=== PATIENT | male | born 1960 | race Caucasian/White ===

== ENCOUNTER 2023-04-11 12:06 | Inpatient (IN) | payer MEDICAID, SELFPAY ==
--- NOTE | ~2023-04-11 | XR_ITS ---
EXAMINATION: XR LUMBOSACRAL SPINE CLINICAL INFORMATION: Pain. COMPARISON: None available. TECHNIQUE: Three views of the lumbosacral spine. FINDINGS: There is normal lumbar lordosis. The vertebral heights, alignment and disc heights are normal. There is no visible acute fracture, dislocation or subluxation seen. No lytic or sclerotic process seen. The soft tissues are normal. SI joints are normal. XR/XR lumbar spine 2-3V IMPRESSION: Unremarkable lumbar spine exam.
--- NOTE | ~2023-04-11 | CT_ITS ---
Examination: CT chest and CT abdomen and pelvis IV contrast. Clinical indications: 50 pound weight loss. Evaluate for malignancy or pancreatitis. COMPARISON: None. TECHNIQUE: 5 mm thin axial and reformatted 3 mm thin sagittal and coronal images of chest, abdomen and pelvis were obtained following IV 85 ml Omnipaque 350. DLP 534. This CT examination was performed using dose optimization technique as appropriate, variously including the following: Automated exposure control Adjustment of MA and/or KV according to patient size(this includes techniques or standardized protocols for targeted exams where dose is matched to indication/reason for exam; extremities or head. Use of iterative reconstruction techniques. FINDINGS: CHEST: LUNGS: The lungs are well-expanded and clear of acute pneumonic process. There is a 2 mm nodule right upper lobe axial image 24/11, a 1 mm nodule right upper lobe peripherally based axial image 22/7, 2 mm nodule right upper lobe axial image 221/14, 5 mm nodule in the lingula axial image 288/14, 5 mm nodule left lower lobe adjacent to the major fissure axial image 304/14. Mediastinum: The heart size and the great vessels are normal caliber. Thyroid lobes are symmetrical and normal. The central trachea and the bronchi widely patent. No abnormal size mediastinal or hilar lymph nodes seen. There is no pericardial effusion. There is mild coronary artery calcifications. Pleura: There is no calcified plaques or thickening or effusion. Axilla: Unremarkable. The chest wall is unremarkable. Osseous structures: No aggressive lytic or sclerotic process seen. Abdomen and pelvis: Liver, ducts and gallbladder: The liver is normal size, contour and density. No focal lesion or intrahepatic ductal dilatation. The gallbladder is distended but no radiopaque calculi seen. No wall thickening. Spleen: unremarkable. Pancreas: Unremarkable. Adrenal glands: Unremarkable. Kidneys: There is a nonobstructive bilateral radiopaque calculi. A 6 mm radiopaque calculi upper pole left kidney and a 5 mm radiopaque calculi mid to lower pole right kidney. There is no hydronephrosis. No enhancing renal mass. Lymphovascular structures: The abdominal aorta is normal caliber. No retrobulbar lymph nodes or mass seen. GI tract: There is moderate stool seen in the colon without significant distention. The small bowel loops are nondilated. No mesenteric lymph nodes seen. There is no free fluid or free air. Appendix is normal caliber. Abdominal wall: Unremarkable. Pelvis: The prostate gland is mildly enlarged. The bladder is nondistended with moderate bladder wall thickening measuring 7 mm. No acute evidence of inguinal hernia. No abnormal size pelvic lymph nodes seen. Osseous structures: There is no aggressive lytic or sclerotic process. CT/CT abdomen pelvis w IV con IMPRESSION: Multiple pulmonary nodules with largest measuring 5 mm. No abnormal mediastinal axillary lymphadenopathy seen. Diffuse bladder wall thickening but no abnormal enhancing mass or radiopaque calculi. Bilateral renal calculi but no hydronephrosis seen. There are punctate nonenhancing hypodensities in the cortex likely small cysts. Moderate constipation. Normal appendix.
--- NOTE | 2023-04-11 12:16 | ED.GENADULT ---
HPI - General Adult General Chief complaint: General Medical Stated complaint: Back & abd pain, insomnia Time Seen by Provider: 04/11/23 14:57 Source: patient and family (Son, Dawood) Mode of arrival: ambulatory Limitations: no limitations History of Present Illness HPI narrative: 62-year-old male with history of diabetes mellitus, hypertension, depression who was brought to emergency department by his son for evaluation of abdominal pain, nausea, vomiting, diarrhea and 50 lb weight over an unknown period of time. The patient currently complaining of abdominal pain. Points to his umbilical area when asked to localize the pain. The pain is a constant squeezing like pain which is 10/10. The pain does radiate to his back. He states that he has had 1-2 episodes of vomiting per day he has had 3-4 episodes of yellow diarrheal stool per day. There has no blood in the emesis or diarrhea. Patient states he is able to eat food. The patient's son states that the patient will go through a bag of sugar every 2-3 days and is noncompliant with a diabetic diet. Patient also does not take his insulin on a regular basis. The son states that his point of care glucose at home always registers high suggesting that is greater than 500. The patient smokes 1 pack of cigarettes per day times 50 years. He does not drink alcohol use drugs. Related Data Allergies Allergy/AdvReac Type Severity Reaction Status Date / Time No Known Allergies Allergy Verified 04/11/23 12:16 Review of Systems Review of Systems: Yes all other systems are reviewed and are negative PMFSH Past Medical History PMF Narrative: Social history: He lives at home with his son who was here in the emergency department with him. Patient does smoke 1 pack of cigarettes per day times 50 years. Patient does not drink alcohol use drugs. Onset Date is defined in the Problem List Problems that require an onset date and time if occurred within 24 hrs of arrival to the ED Aortic Dissection and Rupture; Neurologic impairment; Cardiopulmonary Arrest; Endotracheal Intubation; Insertion or Replacement of Mechanical Circulatory Assist Device Social History Social History Smoked in Last 30 Days: Yes Use of substances other than those prescribed or required for medical reasons: No Advance Directives: No Advance Directives Information Provided: Yes Physical Exam ED Vital Signs: Vital Signs - 24 hr 04/11/23 12:17 04/11/23 14:41 04/11/23 17:09 Temperature 98.5 F Pulse Rate 115 H 104 H Respiratory Rate 16 18 16 Blood Pressure 99/60 109/77 Pulse Oximetry 99 100 Oxygen Delivery Method Room Air Room Air 04/11/23 17:23 Temperature Pulse Rate 100 Respiratory Rate 12 Blood Pressure 90/47 L Pulse Oximetry 97 Oxygen Delivery Method Room Air BMI result Body Mass Index 18.0 Vital signs revealed an elevated heart rate of 115 Exam General: Awake, alert in no distress, very thin appearing with a BMI of 18 Head: Normocephalic, atraumatic EENT: PERRL, Lids normal, sclera normal, conjunctiva normal, nose normal , ears normal, throat without erythema or exudates Neck: Supple, no adenopathy, no trachea midline or C-spine tenderness Lung: breath sounds symmetric, no wheezing, rales or rhonchi Chest: symmetric movement, nontender Heart: regular rate and rhythm, normal S1, S2 no murmurs or rubs Abdomen: soft, moderate diffuse tenderness with normoactive bowel sounds, no guarding Back: no vertebral tenderness, no CVAT, no paraspinal muscle tenderness Extremities: no deformities, moves all extremities symmetrically Neuro: Awake, alert, oriented, normal speech, cranial nerves intact, moves all extremities symmetrically Psych: Pleasant, cooperative Course Course Course Narrative: This is a rapid medical exam: Additional HPI, ROS, PE not included below will be deferred to primary provider. Patient is a 62-year-old male with history of DM presenting to the emergency department with complaint of abdominal pain and weight loss for the past several months. States was 170lbs 5-6 mos ago, is now 111 lbs. Vomiting with any PO intake, diarrhea. Rates pain at 10/10. Tachycardic to 115 in triage. Also complains of low back pain. Family reports glucometer is often reading high. Is only eating sugary foods. Family states he is running out of insulin. Pt is from [facility]. Plan: Labs, UA Medications Administered Discontinued Medications Generic Name Dose Route Start Last Admin Trade Name Freq PRN Reason Stop Dose Admin Lactated Ringer's 1,000 mls @ 999 mls/hr 04/11/23 15:00 04/11/23 17:10 Lr IV 04/11/23 16:00 Infused .Q1H1M NOELLE Infusion Lactated Ringer's 1,000 mls @ 999 mls/hr 04/11/23 15:15 04/11/23 17:09 Lr IV 04/11/23 16:15 999 mls/hr .Q1H1M NOELLE Administration Insulin Human Regular 5 unit 04/11/23 14:59 04/11/23 15:07 Insulin Regular, Human 100 Unit/Ml 3 Ml Vial 0.1 unit/kg (5 unit) 04/11/23 15:00 5 unit IVPUSH Administration ONCE ONE Iohexol 100 ml 04/11/23 16:20 04/11/23 16:20 Iohexol 350 Mg/Ml 100 Ml Infus..Btl IV 04/11/23 16:21 85 ml ONCE ONE Administration Morphine Sulfate 4 mg 04/11/23 16:50 04/11/23 17:09 Morphine Sulfate 4 Mg/Ml Cartridge IVPUSH 04/11/23 16:51 4 mg ONCE STA Administration Protocol Ondansetron HCl 4 mg 04/11/23 16:50 04/11/23 17:09 Ondansetron Hcl 4 Mg/2 Ml Vial IVPUSH 04/11/23 16:51 4 mg ONCE ONE Administration Medical Decision Making Medical Decision Making MDM Narrative: 62-year-old male with history of diabetes mellitus, hypertension, depression who was brought to emergency department by his son for evaluation of abdominal pain, nausea, vomiting, diarrhea and 50 lb weight over an unknown period of time. Patient's has not been compliant with a diabetic diet and according to son into bag of sugar every 3 days and does not take his insulin on a regular basis. Patient did have diffuse abdominal tenderness with no back tenderness. Vital signs did reveal an elevated heart rate of 115 otherwise unremarkable. Following evaluation was ordered: CBC, CMP, magnesium, PT/INR, lactic acid, lipase, beta hydroxybutyrate, blood cultures x2, x-ray lumbar sacral spine, CT scan of the chest abdomen pelvis with IV contrast. Patient was treated with the following: Regular insulin 5 units IV, lactated Ringer's x2 L, morphine 4 mg IV, Zofran 4 mg IV 16:27 my interpretation patient's laboratory evaluation is as follows: WBC normal 6900, elevated eosinophilic 12.3 %. PT/INR normal. Sodium low 130. Chloride low 92. BUN elevated 21. Creatinine elevated 1.41. Glucose elevated 616. Lactic acid elevated 2.4. Alk-phos elevated 152. Beta hydroxybutyrate normal at 0.21. Lipase normal. Urine positive for glucose otherwise negative for ketones. Microscopic revealed no bacteria. 17:[address] scan of the chest with IV contrast did not reveal any evidence for pneumonia or significant malignancy, he does have multiple pulmonary nodules but no mediastinal with the or axillary adenopathy. CT scan of the abdomen pelvis did not reveal a cause for his abdominal pain. Patient's weight loss most likely was related to noncompliance with his insulin and uncontrolled diabetes Patient's point of care glucose did improve to 235. Given his nausea, vomiting, abdominal and noncompliance with his insulin, the patient will need to be admitted to monitor his glucose and possibly to adjust his insulin regimen. Patient will also need home services to help administer his medications. Differential Diagnosis Differential Diagnoses: The differential diagnosis associated with the presentation includes Differential diagnosis includes was not limited to hyperglycemia, starvation ketosis, noncompliance with insulin, dehydration, pancreatitis, gastritis, gastroenteritis, malignancy, electrolyte abnormalities, anemia Admission/Observation Consideration of admission/observation: Escalation of care including admission/observation considered Lab Data MDM Lab Attestation statement: I reviewed the patient's lab results. 04/11/23 12:39 04/11/23 12:39 Labs: Lab Results 04/11/23 04/11/23 04/11/23 Range/Units 12:39 15:47 17:16 WBC 6.9 (4.8-10.8) X10*3/uL RBC 5.57 (4.60-5.80) X10*6/uL Hgb 15.4 (14.0-18.0) g/dl Hct 45.3 (42.0-52.0) % MCV 81.3 (80.0-98.0) fL MCH 27.6 (27.0-33.0) pg MCHC 34.0 (31.0-36.0) g/dl RDW 12.3 (11.0-16.0) % Plt Count 270 (160-400) X10*3/uL MPV 10.5 (9.4-12.4) fL Immature Gran % (Auto) 0.3 (0.0-0.4) % Neut % (Auto) 45.3 (45-73) % Lymph % (Auto) 36.5 (20-40) % [place] % (Auto) 3.9 (2-11) % Eos % (Auto) 12.3 H (0-4) % Baso % (Auto) 1.7 (0-2) % Lymph # (Auto) 2.5 (1.2-4.9) X10*3/uL [place] # (Auto) 0.3 (0.1-1.2) X10*3/uL Eos # (Auto) 0.9 H (0.0-0.4) X10*3/uL Baso # (Auto) 0.1 (0.0-0.2) X10*3/uL Abs Immat Gran (auto) 0.02 (0.00-0.03) X10*3/uL Absolute Neuts (auto) 3.1 (2.0-8.3) x10*3/uL Absolute Nucleated RBC 0.000 (0.0-0.012) X10*3/uL Nucleated RBC % (auto) 0.0 (0.0-0.2) /100WBC PT 9.7 L (11.1-13.3) SEC INR 0.8 L (0.9-1.1) Sodium 130 L (135-145) mmol/L Potassium 4.6 (3.3-5.1) mmol/L Chloride 92 L (96-108) mmol/L Carbon Dioxide 26 (22-29) mmol/L Anion Gap 17 (12-20) BUN 21 H (9-16) mg/dL Creatinine 1.41 H (0.5-1.4) mg/dL Estim Creat Clear Calc 37.9 Estimated GFR 51 POC Glucose 231 H (60-115) mg/dL Random Glucose 616 H* (60-115) mg/dL Lactic Acid 2.4 H* (0.5-2.0) mmol/L Lactic Acid F/U @ 2Hr 2.8 H* (0.5-2.0) mmol/L Calcium 10.3 H (8.4-10.2) mg/dL Magnesium 2.1 (1.6-2.6) mg/dL Total Bilirubin 0.4 (0.0-1.0) mg/dL AST 12 (5-37) U/L ALT 19 (0-40) U/L Alkaline Phosphatase 152 H (39-117) U/L Total Protein 8.1 H (6.5-8.0) g/dL Albumin 4.6 (3.5-5.0) g/dL Lipase 18 (8-78) U/L Beta-Hydroxybutyrate 0.21 (0.02-0.27) mmol/L Urine Color Yellow Urine Appearance Clear Urine pH 6.0 (5.0-9.0) Ur Specific [place] >= 1.030 H (1.005-1.025) Urine Protein Negative (Neg-Trace) mg/dL Urine Glucose (UA) >=1000 H (Negative) mg/dL Urine Ketones Negative (Negative) mg/dL Urine Blood Negative (Negative) Urine Nitrite Negative (Negative) Ur Leukocyte Esterase Negative (Negative) Urine RBC 0-2 (0-2) /HPF Urine WBC 0-5 (0-5) /HPF Ur Squamous Epith Cells 0-2 (0-2) /HPF Urine Bacteria None Seen (None Seen) Hyaline Casts 0-2 (0-2) /LPF Radiology Impression Discussion of test interpretation with radiology: I have reviewed the radiologist's reading. Radiologist Impression: XR lumbar spine 2-3V IMPRESSION: Unremarkable lumbar spine exam. Dictated By: Oliver Baldwin MD CT chest w IV con IMPRESSION: Multiple pulmonary nodules with largest measuring 5 mm. No abnormal mediastinal axillary lymphadenopathy seen. Diffuse bladder wall thickening but no abnormal enhancing mass or radiopaque calculi. Bilateral renal calculi but no hydronephrosis seen. There are punctate nonenhancing hypodensities in the cortex likely small cysts. Moderate constipation. Normal appendix. Dictated By: Oliver Baldwin MD Critical Care Time Critical Care Time Critical Care Time: Yes Total Critical Care Time: 35 Attestation: Critical Care: The patient was critically ill with a high probability of imminent or life threatening deterioration. I spent greater than 30 minutes of discontinuous time evaluating the patient,delivering critical care at the bedside, discussing and evaluating pertinent data with consultants. Critical care time does not include time spent performing separately billable procedures or teaching. Total time spent performing critical care was 35 minutes.
[2023-04-11 12:17] VITALS: BP 99/60; PULSE 115; RESP 16; TEMP 36.9; O2SAT 99; BMI 18.0
--- NOTE | 2023-04-11 12:19 | ECG_ITS ---
Test Reason : TACHY Blood Pressure : / mmHG Vent. Rate : 112 BPM Atrial Rate : 112 BPM P-R Int : 134 ms QRS Dur : 088 ms QT Int : 340 ms P-R-T Axes : 076 -81 080 degrees QTc Int : 464 ms Sinus tachycardia Left anterior fascicular block Minimal voltage criteria for LVH, may be normal variant ( Ione product ) Abnormal ECG No previous ECGs available Referred By: Francia Lee Electronically Signed By:ARVIND ABARCA
[2023-04-11 12:46] LABS: MANUAL DIFF FLAG NO
[2023-04-11 12:48] LABS: Basophils Absolute Auto 0.1 X10*3/uL (0.0-0.2); Basophils Percent Auto 1.7 % (0-2); Eosinophils Absolute Auto 0.9 X10*3/uL (0.0-0.4); Eosinophils Percent Auto 12.3 % (0-4); Hematocrit 45.3 % (42.0-52.0); Hemoglobin 15.4 g/dl (14.0-18.0); Imm Gran Abs Auto 0.02 X10*3/uL (0.00-0.03); Imm Gran Pct Auto 0.3 % (0.0-0.4); Lymphocytes Absolute Auto 2.5 X10*3/uL (1.2-4.9); Lymphocytes Percent Auto 36.5 % (20-40); Mean Corpuscular Hemoglobin 27.6 pg (27.0-33.0); Mean Corpuscular Volume 81.3 fL (80.0-98.0); Mean Platelet Volume 10.5 fL (9.4-12.4); Monocytes Absolute Auto 0.3 X10*3/uL (0.1-1.2); Monocytes Percent Auto 3.9 % (2-11); Neutrophils Absolute Auto 3.1 x10*3/uL (2.0-8.3); Neutrophils Percent Auto 45.3 % (45-73); Platelet Count 270 X10*3/uL (160-400); Red Blood Count 5.57 X10*6/uL (4.60-5.80); Red Cell Distribution Width 12.3 % (11.0-16.0); White Blood Count 6.9 X10*3/uL (4.8-10.8)
[2023-04-11 12:49] LABS: Appearance Urine Clear; Color Urine Yellow; Glucose Urine UA >=1000 mg/dL (Negative); Leukocyte Esterase Urine Negative (Negative); Nitrite Urine Negative (Negative); Specific Gravity - Urine >= 1.030 (1.005-1.025); UMIC TRIGGER UACC YES; Urine Blood Negative (Negative); Urine Ketones Negative (Negative); Urine Protein Negative (Neg-Trace)
[2023-04-11 12:59] LABS: Bacteria Urine None Seen (None Seen); Hyaline Casts Urine 0-2 /LPF (0-2); RBC Urine 0-2 /HPF (0-2); Squamous Epithelial Cell Urine 0-2 /HPF (0-2); WBC Urine 0-5 /HPF (0-5)
[2023-04-11 13:05] LABS: INTERNATIONAL NORM RATIO 0.8 (0.9-1.1); Prothrombin Time 9.7 SEC (11.1-13.3)
[2023-04-11 13:20] LABS: Alanine Aminotransferase 19 U/L (0-40); Albumin Level 4.6 g/dL (3.5-5.0); Alkaline Phosphatase 152 U/L (39-117); Anion Gap 17 (12-20); Aspartate Amino Transferase 12 U/L (5-37); Bilirubin Total 0.4 mg/dL (0.0-1.0); Blood Urea Nitrogen 21 mg/dL (9-16); Calcium 10.3 mg/dL (8.4-10.2); Carbon Dioxide 26 mmol/L (22-29); Chloride 92 mmol/L (96-108); Creatinine Clr Calc Pharmacy 37.9; Estimated Glomerular Filt Rate 51; Glucose Random 616 mg/dL (60-115); Magnesium 2.1 mg/dL (1.6-2.6); Potassium 4.6 mmol/L (3.3-5.1); Sodium 130 mmol/L (135-145); Total Protein 8.1 g/dL (6.5-8.0)
[2023-04-11 13:21] LABS: Lactic Acid 2.4 mmol/L (0.5-2.0)
[2023-04-11 14:41] VITALS: BP 109/77; PULSE 104; RESP 18; O2SAT 100
[2023-04-11 14:46] LABS: Reflex Lactate? Lactic Acid Added
--- NOTE | 2023-04-11 15:01 | PC.NURSE ---
MD notified of patient being in room, and current lab results done when he was in the waiting room, Lactic acid elevated, however pt has not had interventions at this time, MD to order fluids, per MD IVF orders to be placed, awaiting to redraw Lactic at this time.
[2023-04-11] MEDS: Insulin Regular, Human 100 UNIT/ML 3 ML VIAL IVPUSH (15:07)
[2023-04-11] MEDS: Lactated Ringers 1,000 ML 999 ML IV ×2 (15:09→17:09)
[2023-04-11 15:22] LABS: Beta-Hydroxybutyrate 0.21 mmol/L (0.02-0.27); Lipase 18 U/L (8-78)
[2023-04-11] MEDS: iohexoL 350 MG/ML 100 ML INFUS..BTL IV (16:20)
[2023-04-11 16:33] LABS: ~Lactic Acid-LAB USE ONLY 2.8 mmol/L (0.5-2.0)
[2023-04-11 17:09] VITALS: RESP 16
[2023-04-11] MEDS: Morphine Sulfate 4 MG/ML CARTRIDGE IVPUSH (17:09)
[2023-04-11] MEDS: ondansetron HCL 4 MG/2 ML VIAL IVPUSH (17:09)
[2023-04-11 17:21] LABS: Glucose, Whole Blood 231 mg/dL (60-115)
[2023-04-11 17:23] VITALS: BP 90/47; PULSE 100; RESP 12; O2SAT 97
[2023-04-11 17:50] LABS: Reflex Lactate? 2 Y
--- NOTE | 2023-04-11 18:00 | PHA.MEDREC ---
Pharmacy Consult ? Medication Reconciliation Pharmacy has completed the medication reconciliation. [facility] [place] as [facility] Last picked up in July of 2022. Pt is not adherent to medication Mai Thomas CPhT
[2023-04-11 18:29] VITALS: BP 150/73; PULSE 99; RESP 13; TEMP 36.2; O2SAT 98
--- NOTE | 2023-04-11 18:36 | PM.IMHP ---
History of Present Illness Date of Service: 04/11/23 Chief Complaint: WEakness, abdominal pain A 62 years old male with PMH of DMII on Insulin, HTN and depression who presented to ED by his son for evaluation of weakness, nausea, abdominal pain and diarrhea. The patient states that he moved to this area from [place] and has been using 20-30 units of Lantus not on regular basis, rarely checking his blood sugar that ranges 200-300 in morning sometimes but reads HI during the day. he is not compliant with diabetic diet and eats extra sugar. he smokes pack a day as well, been doing that for 50 years. He reports abdominal pain, jodie-umbilical, 5-6, deep and radiate to his back for months but worsened last few weeks with associated 2-3 watery bowel movements daily and sometimes he vomits but have nausea more often. No chest pain, palpitations, SOB, or urinary symptoms. denies any fever or chills. He also reports weight loss of almost 50lbs over the last year with no intention. his appetite is ok and sometimes good according to him. in ED his sugar was elevated at 616 with no anion gap or acidosis. mild dehydration and elevated Cr with no previous baseline. Elevated lactate acid. CT Images negative for any acute abnormalities. Admitted for further evaluation and work up. Review of Systems Review of Systems: No fever, chills but has generalized weakness No chest pain, palpitation No shortness of breath or coughing reporting abdominal pain, nausea and vomiting with diarrhea No urinary symptoms No any rash or wounds PMFSH Medical History (Updated 04/11/23 @ 18:51 by Aimee Preciado MD) Hypertension Type 2 diabetes mellitus Social History Patient Tobacco Use Status: Current everyday Tobacco user Meds Allergies Allergy/AdvReac Type Severity Reaction Status Date / Time No Known Allergies Allergy Verified 04/11/23 12:16 Active Medications: Current Medications Acetaminophen (Acetaminophen 325 Mg Tablet) 650 mg PO Q6H PRN PRN Reason: Pain, Mild (Pain Scale 1-3) Enoxaparin Sodium (Enoxaparin Sodium 40 Mg/0.4 Ml Syringe) 40 mg SUBCUT Q24H NOELLE Sodium Chloride (Ns) 1,000 mls @ 999 mls/hr IV .Q1H1M NOELLE Stop: 04/11/23 19:30 Insulin Glargine (Insulin Glargine,Hum.Rec.Anlog 100 Unit/Ml 10 Ml Vial) 10 unit SUBCUT BEDTIME [facility] Insulin Human Lispro (Insulin Lispro 100 Unit/Ml 3 Ml Vial) 0 unit SUBCUT QIDACHS [facility]; Protocol Mirtazapine (Mirtazapine 15 Mg Tablet) 15 mg PO BEDTIME PRN PRN Reason: Insomnia Ondansetron HCl (Ondansetron Hcl 4 Mg/2 Ml Vial) 4 mg IVPUSH Q8H PRN PRN Reason: Nausea and Vomiting Sodium Chloride (0.9 % Sodium Chloride Flush 3 Ml Syringe) 3 ml IVFLUSH QSHIFT [facility] Vitamin D (Cholecalciferol (Vitamin D3) 25 Mcg Tablet) 125 mcg PO DAILY [facility] Home Medications Medication Instructions Recorded Confirmed Last Taken Type cholecalciferol (vitamin D3) 125 125 mcg PO DAILY 04/11/23 04/11/23 Unknown History mcg (5,000 unit) tablet (Vitamin D3) insulin glargine 100 unit/mL (3 10 unit subcut QPM 04/11/23 04/11/23 Unknown History mL) subcutaneous pen (Lantus Solostar U-100 Insulin) mirtazapine 15 mg tablet 15 mg PO BEDTIME 04/11/23 04/11/23 Unknown History Physical Exam Vital Signs and Narrative: Vital Signs: Last Vital Signs Temp 97.1 F 04/11/23 18:29 Pulse 99 04/11/23 18:29 Resp 13 04/11/23 18:29 BP 150/73 H 04/11/23 18:29 Pulse Ox 98 04/11/23 18:29 O2 Del Method Room Air 04/11/23 18:29 BMI result Body Mass Index 18.0 Const: Other: Constitutional : frail, lethargic , contracted, not in distress Neck : Normal inspection, Supple Cardiovascular : RRR, no JVP, no lower extremity edema Respiratory : good bilateral air entry, no crackles, wheezes or rhonchi Gastrointestinal: soft, lax, Normal bowel sounds, Non tender Skin : Warm, Dry Neurological : Alert & oriented to self and place, No focal deficit Results Labs 04/11/23 12:39 04/11/23 12:39 Labs: Laboratory Results - last 24 hr 04/11/23 04/11/23 04/11/23 12:39 15:47 17:16 MCV 81.3 MCH 27.6 MCHC 34.0 RDW 12.3 Plt Count 270 MPV 10.5 Immature Gran % (Auto) 0.3 Neut % (Auto) 45.3 Lymph % (Auto) 36.5 [place] % (Auto) 3.9 Eos % (Auto) 12.3 H Baso % (Auto) 1.7 Lymph # (Auto) 2.5 [place] # (Auto) 0.3 Eos # (Auto) 0.9 H Baso # (Auto) 0.1 Abs Immat Gran (auto) 0.02 Absolute Neuts (auto) 3.1 Absolute Nucleated RBC 0.000 Nucleated RBC % (auto) 0.0 PT 9.7 L INR 0.8 L Anion Gap 17 Estim Creat Clear Calc 37.9 Estimated GFR 51 POC Glucose 231 H Random Glucose 616 H* Lactic Acid 2.4 H* Lactic Acid F/U @ 2Hr 2.8 H* Calcium 10.3 H Magnesium 2.1 Total Bilirubin 0.4 AST 12 ALT 19 Alkaline Phosphatase 152 H Total Protein 8.1 H Albumin 4.6 Lipase 18 Beta-Hydroxybutyrate 0.21 Urine Color Yellow Urine Appearance Clear Urine pH 6.0 Ur Specific [place] >= 1.030 H Urine Protein Negative Urine Glucose (UA) >=1000 H Urine Ketones Negative Urine Blood Negative Urine Nitrite Negative Ur Leukocyte Esterase Negative Urine RBC 0-2 Urine WBC 0-5 Ur Squamous Epith Cells 0-2 Urine Bacteria None Seen Hyaline Casts 0-2 Imaging Radiologist's Impressions: Impressions Lumbar Spine X-Ray 04/11/23 12:56 IMPRESSION: Unremarkable lumbar spine exam. Abdomen/Pelvis CT 04/11/23 16:27 IMPRESSION: Multiple pulmonary nodules with largest measuring 5 mm. No abnormal mediastinal axillary lymphadenopathy seen. Diffuse bladder wall thickening but no abnormal enhancing mass or radiopaque calculi. Bilateral renal calculi but no hydronephrosis seen. There are punctate nonenhancing hypodensities in the cortex likely small cysts. Moderate constipation. Normal appendix. Chest CT 04/11/23 16:27 IMPRESSION: Multiple pulmonary nodules with largest measuring 5 mm. No abnormal mediastinal axillary lymphadenopathy seen. Diffuse bladder wall thickening but no abnormal enhancing mass or radiopaque calculi. Bilateral renal calculi but no hydronephrosis seen. There are punctate nonenhancing hypodensities in the cortex likely small cysts. Moderate constipation. Normal appendix. Assessment and Plan (1) Failure to thrive in adult: Status: Acute (2) Abnormal weight loss: Status: Acute (3) Abdominal pain: Status: Acute (4) Acute kidney injury: Status: Acute (5) Acute hyperglycemia: Status: Acute Plan A 62 years old male with PMH of DMII on Insulin, HTN and depression who presented to ED by his son for evaluation of weakness, nausea, abdominal pain and diarrhea. 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 Quality Stroke Does the patient have a stroke diagnosis?: No VTE Prior VTE?: No VTE Risk Level:: Medical - moderate - high VTE Device Contraindication: Treatment Not Indicated VTE Drug Contraindication: N/A - Med Ordered
[2023-04-11 19:15] LABS: ~Lactic Acid-LAB USE ONLY 1.1 mmol/L (0.5-2.0)
[2023-04-11 19:22] LABS: Thyroid Stimulating Hormone 1.85 uIU/mL (0.32-4.0); Vitamin D 25-OH Total 31.7 ng/mL (>30)
--- NOTE | 2023-04-11 19:45 | PC.NURSE ---
poc 491. Dr. Khalil notified. pt denies cp/sob/n/v/d at this time. vss. resting comfortably in bed. ivf infusing. call duran within reach.
--- NOTE | 2023-04-11 19:48 | MHC.EDTECH ---
Patient received dinner tray
[2023-04-11 19:55] LABS: Glucose, Whole Blood 491 mg/dL (60-115)
[2023-04-11] MEDS: Insulin Regular, Human 100 UNIT/ML 3 ML VIAL 10 UNIT IVPUSH (20:10)
[2023-04-11] MEDS: Enoxaparin Sodium 40 MG/0.4 ML SYRINGE SUBCUT (20:11)
[2023-04-11] MEDS: Insulin Glargine,Hum.rec.anlog 100 UNIT/ML 10 ML VIAL 10 UNIT SUBCUT (20:11)
[2023-04-11] MEDS: Insulin Lispro 100 UNIT/ML 3 ML VIAL SUBCUT (20:11)
[2023-04-11] MEDS: 0.9 % Sodium Chloride 1,000 ML 999 ML IV ×2 (20:12→23:45)
[2023-04-11 21:55] LABS: Glucose, Whole Blood 262 mg/dL (60-115)
[2023-04-11 23:31] VITALS: BP 89/45; PULSE 92; RESP 15
[2023-04-11] MEDS: Dextrose 50 % 25 GM/50 ML SYRINGE IVPUSH (23:45)
--- NOTE | 2023-04-11 23:51 | PC.NURSE ---
2330 bp low 89/45 pt repositioned to trendelenberg and supine position. ivf infusing. Dr. Khalil notified. pt appears lethargic/clammy. poc rechecked 32. Dr. Khalil notified. pt able to drink 2 cups of juice. iv dextrose given per dr. khalil verbal order. iv bolus infusing.
[2023-04-11 23:55] LABS: Glucose, Whole Blood 32 mg/dL (60-115)
[2023-04-12] VITALS (10 sets, daily range): BP systolic 100–154; BP diastolic 53–90; PULSE 96–105; RESP 16–18; TEMP 35.5–36.6; O2SAT 97–100; BMI 20.3
[2023-04-12 00:09] LABS: Glucose, Whole Blood 163 mg/dL (60-115)
--- NOTE | 2023-04-12 03:33 | PC.NURSE ---
pt accidentally ripped out IV L. AC while repositioning in bed. new iv placed r wrist.
[2023-04-12 06:34] LABS: Anion Gap 9 (12-20); Blood Urea Nitrogen 20 mg/dL (9-16); Calcium 8.7 mg/dL (8.4-10.2); Carbon Dioxide 26 mmol/L (22-29); Chloride 102 mmol/L (96-108); Creatinine Clr Calc Pharmacy 57.5; Estimated Glomerular Filt Rate > 60; Glucose Random 318 mg/dL (60-115); Potassium 4.4 mmol/L (3.3-5.1); Sodium 133 mmol/L (135-145)
[2023-04-12 07:15] LABS: Hemoglobin A1c % > 14.0 % (<6.0)
[2023-04-12 07:25] LABS: Glucose, Whole Blood 304 mg/dL (60-115)
[2023-04-12] MEDS: Insulin Lispro 100 UNIT/ML 3 ML VIAL SUBCUT ×3 (07:31→20:19)
--- NOTE | 2023-04-12 07:57 | PC.NURSE ---
assumed care of pt at 0700. pt a&o x4, pleasant, calm, and cooperative. pt medicated per may and ate breakfast. requesting multiple diabetic sugars. pt resting quietly on stretcher, rr even/unlabored. call duran within reach. awaiting bed assignment. plan of care ongoing.
[2023-04-12] MEDS: metFORMIN HCl 500 MG TABLET PO ×2 (09:03→17:23)
--- NOTE | 2023-04-12 09:13 | HO.PM.IMPN ---
Subjective Subjective Date of Service: 04/12/23 Interval History: Seen and evaluated this morning pain has improved, no nausea Asking for extra food Could not sleep, having pain all over his body Review of Systems Review of Systems: Yes all other systems are reviewed and are negative Physical Exam Vital Signs: Vital Signs: Last Vital Signs Temp 95.9 F L 04/12/23 03:34 Pulse 97 04/12/23 06:04 Resp 18 04/12/23 06:04 BP 122/77 04/12/23 06:04 Pulse Ox 98 04/12/23 06:04 O2 Del Method Room Air 04/12/23 06:04 BMI result Body Mass Index 18.0 Const: Other: Constitutional : frail, lethargic , contracted, not in distress Neck : Normal inspection, Supple Cardiovascular : RRR, no JVP, no lower extremity edema Respiratory : good bilateral air entry, no crackles, wheezes or rhonchi Gastrointestinal: soft, lax, Normal bowel sounds, Non tender Skin : Warm, Dry Neurological : Alert & oriented to self and place, No focal deficit Objective Data Active Medications Acetaminophen (Acetaminophen 325 Mg Tablet) 650 mg PO Q6H PRN PRN Reason: Pain, Mild (Pain Scale 1-3) Dextrose (Dextrose 50 % 25 Gm/50 Ml Syringe) 25 gm IVPUSH Q15M PRN PRN Reason: per Hypoglycemia Standing Ord. Last Admin: 04/11/23 23:45 Dose: 25 gm Documented By: YOLANDA Enoxaparin Sodium (Enoxaparin Sodium 40 Mg/0.4 Ml Syringe) 40 mg SUBCUT Q24H [facility] Last Admin: 04/11/23 20:11 Dose: 40 mg Documented By: YOLANDA Insulin Glargine (Insulin Glargine,Hum.Rec.Anlog 100 Unit/Ml 10 Ml Vial) 15 unit SUBCUT DAILY [facility] Insulin Human Lispro (Insulin Lispro 100 Unit/Ml 3 Ml Vial) 0 unit SUBCUT QIDACHS [facility]; Protocol Last Admin: 04/12/23 07:31 Dose: 8 unit Documented By: WALTER Metformin HCl (Metformin Hcl 500 Mg Tablet) 500 mg PO BIDWM [facility] Last Admin: 04/12/23 09:03 Dose: 500 mg Documented By: WALTER Mirtazapine (Mirtazapine 15 Mg Tablet) 15 mg PO BEDTIME PRN PRN Reason: Insomnia Ondansetron HCl (Ondansetron Hcl 4 Mg/2 Ml Vial) 4 mg IVPUSH Q8H PRN PRN Reason: Nausea and Vomiting Sodium Chloride (0.9 % Sodium Chloride Flush 3 Ml Syringe) 3 ml IVFLUSH QSHIFT [facility] Last Admin: 04/12/23 07:24 Dose: Not Given Documented By: WALTER Non-Admin Reason: Med Not Available Vitamin D (Cholecalciferol (Vitamin D3) 25 Mcg Tablet) 125 mcg PO DAILY [facility] Labs 04/11/23 12:39 04/12/23 06:03 Labs: Laboratory Results - last 24 hr 04/11/23 04/11/23 04/11/23 12:39 15:47 17:16 MCV 81.3 MCH 27.6 MCHC 34.0 RDW 12.3 Plt Count 270 MPV 10.5 Immature Gran % (Auto) 0.3 Neut % (Auto) 45.3 Lymph % (Auto) 36.5 [place] % (Auto) 3.9 Eos % (Auto) 12.3 H Baso % (Auto) 1.7 Lymph # (Auto) 2.5 [place] # (Auto) 0.3 Eos # (Auto) 0.9 H Baso # (Auto) 0.1 Abs Immat Gran (auto) 0.02 Absolute Neuts (auto) 3.1 Absolute Nucleated RBC 0.000 Nucleated RBC % (auto) 0.0 PT 9.7 L INR 0.8 L Anion Gap 17 Estim Creat Clear Calc 37.9 Estimated GFR 51 POC Glucose 231 H Random Glucose 616 H* Estimat Average Glucose TNP Hemoglobin A1c % > 14.0 H Lactic Acid 2.4 H* Lactic Acid F/U @ 2Hr 2.8 H* Lactic Acid F/U @ 4Hr Calcium 10.3 H Magnesium 2.1 Total Bilirubin 0.4 AST 12 ALT 19 Alkaline Phosphatase 152 H Total Protein 8.1 H Albumin 4.6 Lipase 18 25-OH Vitamin D Total 31.7 Beta-Hydroxybutyrate 0.21 TSH 1.85 Urine Color Yellow Urine Appearance Clear Urine pH 6.0 Ur Specific [place] >= 1.030 H Urine Protein Negative Urine Glucose (UA) >=1000 H Urine Ketones Negative Urine Blood Negative Urine Nitrite Negative Ur Leukocyte Esterase Negative Urine RBC 0-2 Urine WBC 0-5 Ur Squamous Epith Cells 0-2 Urine Bacteria None Seen Hyaline Casts 0-2 04/11/23 04/11/23 04/11/23 18:58 19:35 21:11 MCV MCH MCHC RDW Plt Count MPV Immature Gran % (Auto) Neut % (Auto) Lymph % (Auto) [place] % (Auto) Eos % (Auto) Baso % (Auto) Lymph # (Auto) [place] # (Auto) Eos # (Auto) Baso # (Auto) Abs Immat Gran (auto) Absolute Neuts (auto) Absolute Nucleated RBC Nucleated RBC % (auto) PT INR Anion Gap Estim Creat Clear Calc Estimated GFR POC Glucose 491 H* 262 H Random Glucose Estimat Average Glucose Hemoglobin A1c % Lactic Acid Lactic Acid F/U @ 2Hr Lactic Acid F/U @ 4Hr 1.1 Calcium Magnesium Total Bilirubin AST ALT Alkaline Phosphatase Total Protein Albumin Lipase 25-OH Vitamin D Total Beta-Hydroxybutyrate TSH Urine Color Urine Appearance Urine pH Ur Specific [place] Urine Protein Urine Glucose (UA) Urine Ketones Urine Blood Urine Nitrite Ur Leukocyte Esterase Urine RBC Urine WBC Ur Squamous Epith Cells Urine Bacteria Hyaline Casts 04/11/23 04/11/23 04/12/23 23:41 23:59 06:03 MCV MCH MCHC RDW Plt Count MPV Immature Gran % (Auto) Neut % (Auto) Lymph % (Auto) [place] % (Auto) Eos % (Auto) Baso % (Auto) Lymph # (Auto) [place] # (Auto) Eos # (Auto) Baso # (Auto) Abs Immat Gran (auto) Absolute Neuts (auto) Absolute Nucleated RBC Nucleated RBC % (auto) PT INR Anion Gap 9 L Estim Creat Clear Calc 57.5 Estimated GFR > 60 POC Glucose 32 L* 163 H Random Glucose 318 H Estimat Average Glucose Hemoglobin A1c % Lactic Acid Lactic Acid F/U @ 2Hr Lactic Acid F/U @ 4Hr Calcium 8.7 D Magnesium Total Bilirubin AST ALT Alkaline Phosphatase Total Protein Albumin Lipase 25-OH Vitamin D Total Beta-Hydroxybutyrate TSH Urine Color Urine Appearance Urine pH Ur Specific [place] Urine Protein Urine Glucose (UA) Urine Ketones Urine Blood Urine Nitrite Ur Leukocyte Esterase Urine RBC Urine WBC Ur Squamous Epith Cells Urine Bacteria Hyaline Casts 04/12/23 07:21 MCV MCH MCHC RDW Plt Count MPV Immature Gran % (Auto) Neut % (Auto) Lymph % (Auto) [place] % (Auto) Eos % (Auto) Baso % (Auto) Lymph # (Auto) [place] # (Auto) Eos # (Auto) Baso # (Auto) Abs Immat Gran (auto) Absolute Neuts (auto) Absolute Nucleated RBC Nucleated RBC % (auto) PT INR Anion Gap Estim Creat Clear Calc Estimated GFR POC Glucose 304 H Random Glucose Estimat Average Glucose Hemoglobin A1c % Lactic Acid Lactic Acid F/U @ 2Hr Lactic Acid F/U @ 4Hr Calcium Magnesium Total Bilirubin AST ALT Alkaline Phosphatase Total Protein Albumin Lipase 25-OH Vitamin D Total Beta-Hydroxybutyrate TSH Urine Color Urine Appearance Urine pH Ur Specific [place] Urine Protein Urine Glucose (UA) Urine Ketones Urine Blood Urine Nitrite Ur Leukocyte Esterase Urine RBC Urine WBC Ur Squamous Epith Cells Urine Bacteria Hyaline Casts Assessment and Plan (1) Failure to thrive in adult: Status: Acute (2) Acute hyperglycemia: Status: Acute (3) Medically noncompliant: Status: Acute (4) Abnormal weight loss: Status: Acute (5) Acute kidney injury: Status: Acute Plan A 62 years old male with PMH of DMII on Insulin, HTN and depression who presented to ED by his son for evaluation of weakness, nausea, abdominal pain and diarrhea. Acute hyperglycemia in uncontrolled type 2 DM with incident of Hypoglycemia Sugar went down to 39 last night and responded quickly, from Lantus but since then has been hyperglycemic HbA1c >14 Change Lantus to daily 15 units Start Metformin SSI diabetic diet Lactic acidosis On Admission, secondary to dehydration not sepsis resolved Acute kidney injury Cr improved to 0.9 with IVF baseline unknown monitor BMP Failure to thrive in adult w weight loss and chronic pain CT scan negative for any acute findings check stool panel, WBCs GI consult bulk pallet builder eval PT HTN monitor BP and consider NAHUM\ARBs DVT PPx Lovenox The patient will likely need overnight hospital stay for treatment of hyperglycemia in uncontrolled diabetes, evaluation of abdominal pain and weight loss pending specialist consult and safe discharge plan. Quality Stroke Does the patient have a stroke diagnosis?: No VTE Prior VTE?: No VTE Risk Level:: Medical - moderate - high VTE Device Contraindication: Treatment Not Indicated VTE Drug Contraindication: N/A - Med Ordered
--- NOTE | 2023-04-12 09:14 | PC.NURSE ---
pt had BM on commode. pee all over floor. unknown as to why? urinal within pt reach. report given to PB Menezes in overflow. awaiting pt transport.
--- NOTE | 2023-04-12 09:50 | P.CNGI_ITS ---
History of Present Illness Data of Consult Service Date: 04/12/23 Requesting physician: Aimee Preciado Primary Care Provider: None Physician HPI Reason for consult: Abd pain, weight loss and diarrhea 62 YM with Type 2 DM on Insulin, HTN and depression seen [place] [facility] on 04/11[place]23 with weakness, nausea, abdominal pain and diarrhea. Pt gives a hx of chronic back pain for the past 6 months and jodie- umbilical/abdominal pain for the past month. He describes the abdominal pain as intermittent, burning in character and 8/10 in intensity. Pt also complains of diarrhea with 4-5 soft/pudding like stools every day without blood or mucous. Pt reports nausea with occasional vomiting and denies heartburn or dysphagia. He denies chest pain, palpitations, SOB, or urinary symptoms, fever or chills. Pt reports unintentional weight loss of almost 50 lbs over the last year. He states his appetite is ok and he eats 2-3 times a day (usually cooks his own meals). Patient denies known history of cardiac or pulmonary problems, snoring or sleep apnea. Pt denies ETOH abuse and admits to smoking a pack a day for 50 years. The patient states he was diagnosed with DM in 2013. He moved to [facility] from [place] a month ago and has been using 20-30 units of Lantus not on regular basis (since he ran out of his medications), rarely checking his blood sugar that ranges 200-300 in morning sometimes but reads HI during the day. Per pt's son - he is not compliant with diabetic diet and eats extra sugar. Patient is from his , has 8 children and lives with his son. 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 in ED his sugar was elevated at 616 with no anion gap or acidosis. mild dehydration and elevated Cr with no previous baseline. Elevated lactate acid. Pt was admitted for further evaluation and work up. Pt states his abdominal pain and diarrhea have resolved. Nursing staff reports pt has not had a BM since arrival from the ED and has been eating 75% of his diet. 04/11/[address] SCAN SHOWED: IMPRESSION: Multiple pulmonary nodules with largest measuring 5 mm. No abnormal mediastinal axillary lymphadenopathy seen. Diffuse bladder wall thickening but no abnormal enhancing mass or radiopaque calculi. Bilateral renal calculi but no hydronephrosis seen. There are punctate nonenhancing hypodensities in the cortex likely small cysts. Moderate constipation. Normal appendix. Review of Systems 2 Review of Systems: No fever, chills but has generalized weakness No chest pain, palpitation No shortness of breath or coughing reporting abdominal pain, nausea and vomiting with diarrhea No urinary symptoms No any rash or wounds PMFSH Past Medical History Medical History (Updated 05/06/23 @ 00:00 by Erik Matamoros) Hypertension Type 2 diabetes mellitus Social History Social History Household Members: Family Housing: Apartment Do you presently have visiting nurse or other home services: No Patient Tobacco Use Status: Current everyday Tobacco user Cigarettes Per Day: 15 Smoked in Last 30 Days: Yes Use of substances other than those prescribed or required for medical reasons: No Advance Directives: Yes Advance Directives on File: Yes Advance Directives Date on File: 04/17/23 service: No Meds Allergies Allergy/AdvReac Type Severity Reaction Status Date / Time No Known Allergies Allergy Verified 04/11/23 12:16 Active Medications: Current Medications Acetaminophen (Acetaminophen 325 Mg Tablet) 650 mg PO Q6H PRN PRN Reason: Pain, Mild (Pain Scale 1-3) Dextrose (Dextrose 50 % 25 Gm/50 Ml Syringe) 25 gm IVPUSH Q15M PRN PRN Reason: per Hypoglycemia Standing Ord. Last Admin: 04/11/23 23:45 Dose: 25 gm Enoxaparin Sodium (Enoxaparin Sodium 40 Mg/0.4 Ml Syringe) 40 mg SUBCUT Q24H [facility] Last Admin: 04/11/23 20:11 Dose: 40 mg Gabapentin (Gabapentin 100 Mg Capsule) 200 mg PO BEDTIME [facility] Insulin Glargine (Insulin Glargine,Hum.Rec.Anlog 100 Unit/Ml 10 Ml Vial) 15 unit SUBCUT DAILY [facility] Insulin Human Lispro (Insulin Lispro 100 Unit/Ml 3 Ml Vial) 0 unit SUBCUT QIDACHS [facility]; Protocol Last Admin: 04/12/23 07:31 Dose: 8 unit Metformin HCl (Metformin Hcl 500 Mg Tablet) 500 mg PO BIDWM [facility] Last Admin: 04/12/23 09:03 Dose: 500 mg Mirtazapine (Mirtazapine 15 Mg Tablet) 15 mg PO BEDTIME PRN PRN Reason: Insomnia Ondansetron HCl (Ondansetron Hcl 4 Mg/2 Ml Vial) 4 mg IVPUSH Q8H PRN PRN Reason: Nausea and Vomiting Sodium Chloride (0.9 % Sodium Chloride Flush 3 Ml Syringe) 3 ml IVFLUSH QSHIFT [facility] Last Admin: 04/12/23 07:24 Dose: Not Given Vitamin D (Cholecalciferol (Vitamin D3) 25 Mcg Tablet) 125 mcg PO DAILY [facility] Home Medications Medication Instructions Recorded Confirmed Last Taken Type cholecalciferol (vitamin D3) 125 125 mcg PO DAILY 04/11/23 04/11/23 Unknown History mcg (5,000 unit) tablet (Vitamin D3) mirtazapine 15 mg tablet 15 mg PO BEDTIME 04/11/23 04/11/23 Unknown History Physical Exam 2 Vital Signs: Vital Signs: Last Vital Signs Temp 95.9 F L 04/12/23 03:34 Pulse 97 04/12/23 06:04 Resp 18 04/12/23 06:04 BP 122/77 04/12/23 06:04 Pulse Ox 98 04/12/23 06:04 O2 Del Method Room Air 04/12/23 06:04 BMI result Body Mass Index 18.0 Const: General: no acute distress and other (frail appearing) Nutritional Appearance: average body habitus Orientation/consciousness: patient oriented x3 Limitations: no limitations HEENT: Head: Yes normal to inspection Ears: hearing grossly normal bilaterally Eyes: Sclerae: sclerae normal Pupils: Equal, round and reactive pupils present Neck: Neck: Yes normal visual inspection Chest: Chest palpation & inspection: normal inspection of the chest Resp: Effort & Inspection: normal respiratory effort Auscultation: clear to auscultation bilaterally Cardio: Palpation: normal PMI Rate: regular rate Rhythm: regular rhythm Heart sounds: S1 normal heart sound present, S2 normal heart sound present and no murmurs GI: Palpation (GI): Soft to palpation, nontender and No hepatosplenomegaly present Auscultation: normal bowel sounds Rectal Exam - Male: Yes deferred Skin: General skin exam: no rashes or lesions noted Neuro: General: patient oriented x3, gait normal and moves all extremities Cranial nerves: Yes Equal, round and reactive pupils present Psych: Appearance: grossly normal Mental Status: mental status grossly normal Results Labs 04/11/23 12:39 04/13/23 05:57 Labs: Short CBC 04/11/23 Range/Units 12:39 WBC 6.9 (4.8-10.8) X10*3/uL Hgb 15.4 (14.0-18.0) g/dl Hct 45.3 (42.0-52.0) % Plt Count 270 (160-400) X10*3/uL BMP 04/11/23 04/12/23 12:39 06:03 Sodium 130 L 133 L Potassium 4.6 4.4 Chloride 92 L 102 Carbon Dioxide 26 26 BUN 21 H 20 H Creatinine 1.41 H 0.93 Calcium 10.3 H 8.7 D Liver Function 04/11/23 Range/Units 12:39 Total Bilirubin 0.4 (0.0-1.0) mg/dL AST 12 (5-37) U/L ALT 19 (0-40) U/L Alkaline Phosphatase 152 H (39-117) U/L Albumin 4.6 (3.5-5.0) g/dL Urine 04/11/23 Range/Units 12:39 Urine Color Yellow Urine Appearance Clear Urine pH 6.0 (5.0-9.0) Ur Specific [place] >= 1.030 H (1.005-1.025) Urine Protein Negative (Neg-Trace) mg/dL Urine Glucose (UA) >=1000 H (Negative) mg/dL Assessment and Plan (1) Abnormal weight loss: Status: Acute (2) Abdominal pain: Status: Resolved (3) Chronic diarrhea: Status: Resolved (4) Diabetes: Status: Acute Plan 62 YM with Type 2 DM on Insulin, HTN and depression seen [place] [facility] [place] 04[place]23 with weakness, nausea, abdominal pain and diarrhea. Per pt's son - he is not compliant with diabetic diet and eats extra sugar. in ED his sugar was elevated at 616 with no anion gap or acidosis. mild dehydration and elevated Cr with no previous baseline. Elevated lactate acid. Pt states his abdominal pain and diarrhea have resolved. Nursing staff reports pt has not had a BM since arrival from the ED and has been eating 75% of his diet. Etiology of abdominal pain, wt loss and diarrhea is unclear - ? PUD, infectious colitis, pancreatic insufficiency or parasitic infection (elevated eosinophil count on admission) Wt loss partially caused by uncontrolled DM RECOMMENDATIONS 1. Check stool for fat, pancreatic elastase and O & P - order placed. 2. Check Transglutaminase ab to rule out celiac disease (added to am labs) 3. Pt needs further evaluation with EGD and Colonoscopy (he denies having a colonoscopy in the past) - can be scheduled as an outpatient since symptoms have improved. 4. Agree with Nutrition consult for education on ADA and improved control of DM. ADDENDUM: Hospital course: Patient presented with abdominal pain and weakness, CT noted for no acute finding but had constipation, lab work revealed JULY, hyperglycemia and hemoglobin A1C of 14 has has not been compliant with meds, and claims that his glucometer has been broken and reads error all the time. Patient was hydrated and restarted on Med with Lantus now up to 15 unts daily, sliding scale with humalog and metformin 500 mg twice a day. JULY has resolved, Blood sugar is better controled. He is familar with insulin pen and will be discharege with Insulin pen for Lantus and Humalog Procedures Date of Service Date of Service: 05/08/23
--- NOTE | 2023-04-12 09:56 | PC.NURSE ---
pt being brought to overflow.
[2023-04-12] MEDS: Cholecalciferol (Vitamin D3) 25 MCG TABLET 125 MCG PO (10:02)
[2023-04-12] MEDS: Insulin Glargine,Hum.rec.anlog 100 UNIT/ML 10 ML VIAL 15 UNIT SUBCUT (10:02)
[2023-04-12] MEDS: Acetaminophen 325 MG TABLET 650 MG PO (10:06)
[2023-04-12] MEDS: 0.9 % Sodium Chloride Flush 3 ML SYRINGE IVFLUSH ×3 (10:06→20:16)
--- NOTE | 2023-04-12 10:19 | P.CDIM_ITS ---
PROVIDER RESPONSE TEXT: To clarify, the appropriate diagnosis supported by the clinical indicators: Other (explain): pseuodo-hyponatremia QUERY TEXT: PHYSICIAN'S DOCUMENTATION REQUEST Date of Query: 04/12/2023 09:21 AM EST Patient Name: ROLA FUENTES Admit Date: 04/11/2023 Dear Aimee Preciado, A review of the medical record indicates additional documentation may be needed. Please review below and update the documentation accordingly. Clinical Indicators: LAB FINDINGS: sodium 130L 133 Patient N/V/D/Dehydrated Based on the above, is there a diagnosis that correlates with these lab findings: Hyponatremia resolved, possible, suspected etc. Labs indicate a diagnosis of (please specify) Other (explain) Clinically unable to determine (explain) Thank you, Bety Carrion, CCS, CDIS Use of terms such as suspected, likely, concern for, or probable (associated with a specific diagnosi s that is being evaluated, monitored, or treated as if it exists) are acceptable and can be coded in the inpatient se tting, when documented at the time of discharge. Please use your independent medical judgment in providing your response. THIS QUERY IS PART OF THE PERMANENT MEDICAL RECORD
--- NOTE | 2023-04-12 10:22 | P.CDIM_ITS ---
PROVIDER RESPONSE TEXT: To clarify, the appropriate diagnosis supported by the clinical indicators: Acute lactic acidosis: resolved QUERY TEXT: PHYSICIAN'S DOCUMENTATION REQUEST Date of Query: 04/12/2023 09:23 AM EST Patient Name: ROLA FUENTES Admit Date: 04/11/2023 Dear Aimee Preciaod, A review of the medical record indicates additional documentation may be needed. Please review below and update the documentation accordingly. Clinical Indicators: H&P: elevated lactic acid LA 2.4 Acute lactic acidosis suspected, resolved, possible, etc. Acute on chronic Other (explain) Clinically unable to determine (explain) Thank you, Bety Carrion, CCS, CDIS Use of terms such as suspected, likely, concern for, or probable (associated with a specific diagnosi s that is being evaluated, monitored, or treated as if it exists) are acceptable and can be coded in the inpatient se tting, when documented at the time of discharge. Please use your independent medical judgment in providing your response. THIS QUERY IS PART OF THE PERMANENT MEDICAL RECORD
[2023-04-12 10:51] LABS: Leukocytes Stool Qualitative NEGATIVE (NEGATIVE)
--- NOTE | 2023-04-12 10:54 | MHC.CM.PN ---
CM MET WITH PT WHO STATES HE IS STAYING WITH HIS SON BUT CANNOT RETURN HE ALSO SAYS HE DOES NOT HAVE INSURANCE UNTIL APRIL 27, 2023 PT DENIES HAVING DME BUT STATES HE NEEDS SOME HE RECENTLY MOVED HERE FROM [place], AND DOES NOT YET HAVE A PCP PT DOES NOT HAVE A HCP BUT HIS SON WITH SPEAK TO HIM ABOUT COMPLETING ONE CM CALLED PTS SON, ROLA [phone] HE REPORTS PT MOVED IN WITH HIM ABOUT 5 WEEKS AGO HE SAYS HIS LANDLORD DID SAY THE PT COULD ONLY STAY A MONTH, BUT ROLA REPORTS HE IS NOT CONCERNED ABOUT PT RETURNING HE SAYS THE PT HAS ACTIVE [employer], BUT HIS MEDICARE WILL BE ACTIVE ON APR 27 PT DOES NOT HAVE A PCP, ROLA SAYS [facility] TOLD HIM THEY MAY BE ABLE TO GET HIM IN SOMETIME IN [place] HE IS WILLING TO GO [place]WHERE [place] IF AN APPT CAN BE MADE FOR THE PT ROLA REPORTS HE HOPES THAT PT GOES TO STR HE WILL JUST DO THE SAME THING IF HE GOES RIGHT HOME, HE SAYS THE PT OFTEN DOES NOT TAKE CARE OF HIMSELF PROPERLY REFERRALS WILL BE MADE FOR STR AND [facility] DCP TBD HOME WITH [facility] REFERRAL VS STR TRANSPORT TBD
--- NOTE | 2023-04-12 11:25 | MHC.CM.PN ---
Pt lives with son, he came here about 1 month ago from [place], he said he needs help to find a place to live, family resource guide was given. He does not have a PCP, task submitted to obtain him a new PCP appt. Pt did not use any home health services or med equipment. CM to follow and assist with DC planning.
[2023-04-12 11:26] LABS: Glucose, Whole Blood 155 mg/dL (60-115)
[2023-04-12 11:48] LABS: Adenovirus F 40/41 Not Detected (Not Detect.); Astrovirus Not Detected (Not Detect.); Campylobacter Not Detected (Not Detect.); Cryptosporidium Not Detected (Not Detect.); Cyclospora cayetanensis Not Detected (Not Detect.); E. coli EAEC Not Detected (Not Detect.); E. coli EPEC Not Detected (Not Detect.); E. coli ETEC Not Detected (Not Detect.); E. coli STEC Not Detected (Not Detect.); Entamoeba histolytica Not Detected (Not Detect.); Giardia lamblia Not Detected (Not Detect.); Norovirus GI/GII Not Detected (Not Detect.); Plesiomonas shigelloides Not Detected (Not Detect.); Rotavirus A Not Detected (Not Detect.); Salmonella Not Detected (Not Detect.); Sapovirus Not Detected (Not Detect.); Shigella sp./EIEC Not Detected (Not Detect.); Vibrio Not Detected (Not Detect.); Vibrio Cholerae Not Detected (Not Detect.); Yersinia enterocolitica Not Detected (Not Detect.)
--- NOTE | 2023-04-12 14:10 | MHC.CLN ---
NUTRITION CONSULT TO EVALUATE/ASSESS, DIET=DIABETIC 2200 KCALS. SUPPLEMENT DISCONTINUED SINCE DIETARY KCALS PROVIDING APPROX 25% GREATER KCALS THAN ESTIMATED ENERGY NEEDS. ASKED PATIENT ABOUT SUGAR INTAKE AT HOME. DID NOT PROVIDE CONSISTENT INFO. NUTRITION DX NON SEVERE MALNUTRITION IN THE CONTEXT OF CHRONIC ILLNESS. NO WEIGHT HX VIEWED. PATIENT REPORTS WEIGHT LOSS X 6 MONTHS APPROX 26%. MILD DEPLETION OF BODY FAT AND MUSCLE MASS NOTED. A1C IS GREATER THAN 14. UNCONTROLLED DM IS LIKELY CONTRIBUTOR TO WEIGHT LOSS. NO SKIN ISSUES REPORTED. FOLLOW FOR INTAKE, WEIGHT AND BLOOD GLUCOSE. SEE CLINICAL NUTRITION ASSESSMENT 04/12/23.
[2023-04-12 15:52] LABS: Glucose, Whole Blood 91 mg/dL (60-115)
[2023-04-12] MEDS: Enoxaparin Sodium 40 MG/0.4 ML SYRINGE SUBCUT (17:23)
[2023-04-12] MEDS: Gabapentin 100 MG CAPSULE 200 MG PO (20:13)
[2023-04-12] MEDS: traMADoL HCL 50 MG TABLET 25 MG PO (20:13)
[2023-04-12] MEDS: Mirtazapine 15 MG TABLET PO (20:13)
[2023-04-12 20:14] LABS: Glucose, Whole Blood 208 mg/dL (60-115)
[2023-04-12 22:42] LABS: Glucose, Whole Blood 90 mg/dL (60-115)
[2023-04-13 03:58] VITALS: BP 117/53; PULSE 97; RESP 18; TEMP 37; O2SAT 97
[2023-04-13 06:52] LABS: Anion Gap 10 (12-20); Blood Urea Nitrogen 13 mg/dL (9-16); Calcium 8.9 mg/dL (8.4-10.2); Carbon Dioxide 27 mmol/L (22-29); Chloride 104 mmol/L (96-108); Creatinine Clr Calc Pharmacy 72.6; Estimated Glomerular Filt Rate > 60; Glucose Random 158 mg/dL (60-115); Potassium 4.1 mmol/L (3.3-5.1); Sodium 137 mmol/L (135-145)
[2023-04-13 07:27] VITALS: BP 110/53; PULSE 98; RESP 16; TEMP 37; O2SAT 97
[2023-04-13 07:57] LABS: Glucose, Whole Blood 300 mg/dL (60-115)
[2023-04-13] MEDS: Insulin Lispro 100 UNIT/ML 3 ML VIAL SUBCUT ×3 (08:08→20:35)
[2023-04-13] MEDS: Insulin Glargine,Hum.rec.anlog 100 UNIT/ML 10 ML VIAL 15 UNIT SUBCUT (08:10)
[2023-04-13] MEDS: Cholecalciferol (Vitamin D3) 25 MCG TABLET 125 MCG PO (08:10)
[2023-04-13] MEDS: metFORMIN HCl 500 MG TABLET PO ×2 (08:10→16:22)
[2023-04-13] MEDS: 0.9 % Sodium Chloride Flush 3 ML SYRINGE IVFLUSH ×3 (08:13→20:37)
[2023-04-13 11:07] LABS: Glucose, Whole Blood 154 mg/dL (60-115)
[2023-04-13 14:09] LABS: Glucose, Whole Blood 140 mg/dL (60-115)
--- NOTE | 2023-04-13 14:15 | MHC.CM.PN ---
Pt. lives with his son in a studio apt. Son brought him here from [place] and said he had planned to find pt. his own place to live, but he thinks that he cannot be alone. Son works, sometimes 12 hours, so pt. is alone for long periods. PT rec. that pt. have home PT services, which he cannot get because he does not have a PCP. CM has sent referrals for LTC, with a note that pt. could pursue [facility]. CM will continue to follow.
[2023-04-13 15:02] VITALS: BP 92/53; PULSE 106; RESP 18; TEMP 36.7; O2SAT 97
[2023-04-13 16:02] LABS: Glucose, Whole Blood 148 mg/dL (60-115)
[2023-04-13] MEDS: traMADoL HCL 50 MG TABLET 25 MG PO (16:22)
--- NOTE | 2023-04-13 16:24 | HO.PM.IMPN ---
Subjective Subjective Date of Service: 04/14/23 Interval History: Patient has no new complaint Physical Exam Vital Signs: Vital Signs: Last Vital Signs Temp 98.1 F 04/13/23 15:02 Pulse 106 H 04/13/23 15:02 Resp 18 04/13/23 15:02 BP 92/53 L 04/13/23 15:02 Pulse Ox 97 04/13/23 15:02 O2 Del Method Room Air 04/13/23 15:02 BMI result Body Mass Index 20.3 Objective Data Active Medications Acetaminophen (Acetaminophen 325 Mg Tablet) 650 mg PO Q6H PRN PRN Reason: Pain, Mild (Pain Scale 1-3) Last Admin: 04/12/23 10:06 Dose: 650 mg Documented By: JANIYA Dextrose (Dextrose 50 % 25 Gm/50 Ml Syringe) 25 gm IVPUSH Q15M PRN PRN Reason: per Hypoglycemia Standing Ord. Last Admin: 04/11/23 23:45 Dose: 25 gm Documented By: YOLANDA Enoxaparin Sodium (Enoxaparin Sodium 40 Mg/0.4 Ml Syringe) 40 mg SUBCUT Q24H [facility] Last Admin: 04/12/23 17:23 Dose: 40 mg Documented By: LYNN Gabapentin (Gabapentin 100 Mg Capsule) 200 mg PO BEDTIME [facility] Last Admin: 04/12/23 20:13 Dose: 200 mg Documented By: EUGENIE Insulin Glargine (Insulin Glargine,Hum.Rec.Anlog 100 Unit/Ml 10 Ml Vial) 15 unit SUBCUT DAILY [facility] Last Admin: 04/13/23 08:10 Dose: 15 unit Documented By: LYNN Insulin Human Lispro (Insulin Lispro 100 Unit/Ml 3 Ml Vial) 0 unit SUBCUT QIDACHS [facility]; Protocol Last Admin: 04/13/23 16:08 Dose: Not Given Documented By: LYNN Non-Admin Reason: No Insulin Coverage Metformin HCl (Metformin Hcl 500 Mg Tablet) 500 mg PO BIDWM [facility] Last Admin: 04/13/23 16:22 Dose: 500 mg Documented By: LYNN Mirtazapine (Mirtazapine 15 Mg Tablet) 15 mg PO BEDTIME PRN PRN Reason: Insomnia Last Admin: 04/12/23 20:13 Dose: 15 mg Documented By: EUGENIE Ondansetron HCl (Ondansetron Hcl 4 Mg/2 Ml Vial) 4 mg IVPUSH Q8H PRN PRN Reason: Nausea and Vomiting Sodium Chloride (0.9 % Sodium Chloride Flush 3 Ml Syringe) 3 ml IVFLUSH QSHIFT [facility] Last Admin: 04/13/23 16:23 Dose: 3 ml Documented By: COTEMA Tramadol HCl (Tramadol Hcl 50 Mg Tablet) 25 mg PO Q6H PRN PRN Reason: Pain, Moderate(Pain Scale 4-6) Last Admin: 04/13/23 16:22 Dose: 25 mg Documented By: LYNN Vitamin D (Cholecalciferol (Vitamin D3) 25 Mcg Tablet) 125 mcg PO DAILY [facility] Last Admin: 04/13/23 08:10 Dose: 125 mcg Documented By: LYNN Labs 04/11/23 12:39 04/13/23 05:57 Labs: Laboratory Results - last 24 hr 04/12/23 04/12/23 04/13/23 20:10 22:38 05:57 Hold Purple Top SEE NOTE Anion Gap 10 L Estim Creat Clear Calc 72.6 Estimated GFR > 60 POC Glucose 208 H 90 Random Glucose 158 H Calcium 8.9 04/13/23 04/13/23 04/13/23 07:33 10:57 14:06 Hold Purple Top Anion Gap Estim Creat Clear Calc Estimated GFR POC Glucose 300 H 154 H 140 H Random Glucose Calcium 04/13/23 15:52 Hold Purple Top Anion Gap Estim Creat Clear Calc Estimated GFR POC Glucose 148 H Random Glucose Calcium Microbiology Microbiology Results: Microbiology 04/11/23 12:39 Blood Culture - Preliminary Blood - Venous No growth after 48 hours. 04/11/23 14:52 Blood Culture - Preliminary Blood - Venous No growth after 24 hours. Assessment and Plan (1) Failure to thrive in adult: Status: Acute (2) Acute hyperglycemia: Status: Acute (3) Medically noncompliant: Status: Acute (4) Abnormal weight loss: Status: Acute (5) Acute kidney injury: Status: Acute Plan A 62 years old male with PMH of DMII on Insulin, HTN and depression who presented to ED by his son for evaluation of weakness, nausea, abdominal pain and diarrhea. Diabetes, uncontrolled d/t non compliance, A1C 14 -continue Lantus, metformin and sliding Lactic acidosis On Admission, secondary to dehydration not sepsis resolved Acute kidney injury--d/t pre renal and resolved with IVF Failure to thrive in adult w weight loss and chronic pain CT scan negative for any acute findings GI recommend outpatient EGD and colonoscopy, stools studies HTN--moderately high, start norvasc 5 daily DVT PPx Lovenox need for inpt: awaiting safe dispo Quality Stroke Does the patient have a stroke diagnosis?: No VTE Prior VTE?: No VTE Risk Level:: Medical - moderate - high VTE Device Contraindication: Treatment Not Indicated VTE Drug Contraindication: N/A - Med Ordered
[2023-04-13] MEDS: Enoxaparin Sodium 40 MG/0.4 ML SYRINGE SUBCUT (18:04)
[2023-04-13 19:31] VITALS: BP 147/81; PULSE 111; RESP 18; TEMP 37; O2SAT 97
[2023-04-13 20:29] LABS: Glucose, Whole Blood 274 mg/dL (60-115)
[2023-04-13] MEDS: Mirtazapine 15 MG TABLET PO (20:35)
[2023-04-13] MEDS: Gabapentin 100 MG CAPSULE 200 MG PO (20:35)
[2023-04-14 03:43] VITALS: BP 134/80; PULSE 108; RESP 17; TEMP 36.7; O2SAT 98
[2023-04-14 07:18] VITALS: BP 166/88; PULSE 103; RESP 18; TEMP 36; O2SAT 99
[2023-04-14 07:54] LABS: Glucose, Whole Blood 320 mg/dL (60-115)
[2023-04-14] MEDS: Insulin Glargine,Hum.rec.anlog 100 UNIT/ML 10 ML VIAL 15 UNIT SUBCUT (08:09)
[2023-04-14] MEDS: traMADoL HCL 50 MG TABLET 25 MG PO (08:10)
[2023-04-14] MEDS: Insulin Lispro 100 UNIT/ML 3 ML VIAL SUBCUT ×2 (08:10→16:51)
[2023-04-14] MEDS: metFORMIN HCl 500 MG TABLET PO ×2 (08:10→16:51)
[2023-04-14] MEDS: Cholecalciferol (Vitamin D3) 25 MCG TABLET 125 MCG PO (08:11)
[2023-04-14] MEDS: 0.9 % Sodium Chloride Flush 3 ML SYRINGE IVFLUSH ×2 (08:13→16:51)
--- NOTE | 2023-04-14 10:19 | MHC.CLN ---
F/U DIET=DIABETIC 2200 KCALS - APPROPRIATE. POC GLUCOSE ELEVATED. INTAKE AT MEALS 75-100%. NO SKIN ISSUES REPORTED. FOLLOW FOR INTAKE, WEIGHT AND BLOOD GLUCOSE.
[2023-04-14] MEDS: amLODIPine Besylate 5 MG TABLET PO (11:00)
[2023-04-14 11:05] LABS: Glucose, Whole Blood 101 mg/dL (60-115)
[2023-04-14] MEDS: ondansetron HCL 4 MG/2 ML VIAL IVPUSH (12:29)
[2023-04-14 12:59] LABS: Glucose, Whole Blood 106 mg/dL (60-115)
--- NOTE | 2023-04-14 13:51 | MHC.CM.PN ---
Pt has been medically cleared for DC. His son will pick him up and bring him home. Referrals were made to [facility] for a new PCP and to [facility] adult day health program. Information given to son to follow up.
[2023-04-14 14:14] LABS: Immunoglobulin A 182 mg/dL (70-320)
--- NOTE | 2023-04-14 14:28 | P.CDIM_ITS ---
PROVIDER RESPONSE TEXT: To clarify, the appropriate diagnosis supported by the clinical indicators: Malnutrition: mild QUERY TEXT: PHYSICIAN'S DOCUMENTATION REQUEST Date of Query: 04/14/2023 08:56 AM EST Patient Name: ROLA FUENTES Admit Date: 04/11/2023 Dear Jaswinder Guadalupe, A review of the medical record indicates additional documentation may be needed. Please review below and update the documentation accordingly. Clinical Indicators: Clinical nutrition assessment dated 04/12 - Failure to thrive, medically noncompliant, abnormal weight loss Unplanned weight loss > 10% 6 months Mild depletion rib cage, clavicle Non-severe malnutrition in the context of Chronic illness. Monitor meal intake If possible, please provide an associated diagnosis that correlates with nutrition evaluation: Malnutrition mild, moderate or severe Anorexia Other Other (explain) Clinically unable to determine (explain) Thank you, Bety Carrion, CCS, CDIS Use of terms such as suspected, likely, concern for, or probable (associated with a specific diagnosi s that is being evaluated, monitored, or treated as if it exists) are acceptable and can be coded in the inpatient se tting, when documented at the time of discharge. Please use your independent medical judgment in providing your response. THIS QUERY IS PART OF THE PERMANENT MEDICAL RECORD
[2023-04-14 15:02] VITALS: BP 141/65; PULSE 104; RESP 18; TEMP 36; O2SAT 97
[2023-04-14 16:20] LABS: Glucose, Whole Blood 183 mg/dL (60-115)
--- NOTE | 2023-04-14 16:55 | PM.DS ---
DS: Providers Provider Date of Service: 04/14/23 Date of admission: 04/11/23 18:19 Primary care physician: None Physician Consults: 04/11/23 18:55 Consult to Gastroenterology Routine Consulting Provider: Clemente Reardon Reason for consultation: Abdominal pain, weight loss, diarrhea DS: Diagnosis Discharge Diagnosis (1) Failure to thrive in adult: Status: Acute (2) Acute hyperglycemia: Status: Acute (3) Medically noncompliant: Status: Acute (4) Abnormal weight loss: Status: Acute (5) Acute kidney injury: Status: Acute DS: Summary Hospital Course Hospital Course: Chief Complaint: WEakness, abdominal pain A 62 years old male with PMH of DMII on Insulin, HTN and depression who presented to ED by his son for evaluation of weakness, nausea, abdominal pain and diarrhea. The patient states that he moved to this area from [place] and has been using 20-30 units of Lantus not on regular basis, rarely checking his blood sugar that ranges 200-300 in morning sometimes but reads HI during the day. he is not compliant with diabetic diet and eats extra sugar. he smokes pack a day as well, been doing that for 50 years. He reports abdominal pain, jodie-umbilical, 5-6, deep and radiate to his back for months but worsened last few weeks with associated 2-3 watery bowel movements daily and sometimes he vomits but have nausea more often. No chest pain, palpitations, SOB, or urinary symptoms. denies any fever or chills. He also reports weight loss of almost 50lbs over the last year with no intention. his appetite is ok and sometimes good according to him. in ED his sugar was elevated at 616 with no anion gap or acidosis. mild dehydration and elevated Cr with no previous baseline. Elevated lactate acid. CT Images negative for any acute abnormalities. Admitted for further evaluation and work up. Hospial course: Patient presented with abdominal pain and weakness, CT noted for no acute finding but had constipation, lab work revealed JULY, hyperglycemia and hemoglobin A1C of 14 has has not been compliant with meds, and claims that his glucometer has been broken and reads error all the time. Patient was hydrated and restarted on Med with Lantus now up to 15 unts daily, sliding scale with humalog and metformin 500 mg twice a day. JULY has resolved, Blood sugar is better controled. He was evaluated by GI and is recommended for outpatient EGD and colonoscopy for unexplained weight los. He is familar with insulin pen and will be discharege with Insulin pen for Lantus and Humalog Abdominal pain CT scan negative for any acute findings check stool panel, WBCs GI consult JULY d/t dehydration resolved. Failure to thrive in adult weight loss and chronic pain Outpatient work up with GI PT recommended home with serice HTN--blood pressure has been on the higher side and started on Norvasc Time Attestation Discharge coordination time: Greater than 30 minutes Quality: Safe Use of Opioids Does Pt have an Active Cancer Diagnosis on the Problem List?: No Quality: Stroke Does the patient have a stroke diagnosis?: No Physical Exam Vital Signs: Vital Signs: Last Vital Signs Temp 96.8 F 04/14/23 15:02 Pulse 104 H 04/14/23 15:02 Resp 18 04/14/23 15:02 BP 141/65 H 04/14/23 15:02 Pulse Ox 97 04/14/23 15:02 O2 Del Method Room Air 04/14/23 15:02 BMI result Body Mass Index 20.3 DS: Data Data Completed and Pending Labs on day of discharge: Laboratory Results - last 24 hr 04/13/23 04/13/23 04/14/23 05:57 20:22 07:22 POC Glucose 274 H 320 H IgA 182 04/14/23 04/14/23 04/14/23 10:55 12:55 16:10 POC Glucose 101 106 183 H IgA Preliminary micro results at discharge 04/11/23 14:52 Blood Culture - Preliminary Blood - Venous No growth after 48 hours. 04/11/23 12:39 Blood Culture - Preliminary Blood - Venous No growth after 48 hours. Discharge Plan Discharge Anticipated Discharge Date/Time: 04/14/23 16:05 Patient Disposition: Home, Self-Care Discharge Diagnosis: Uncontrolled diabetes Referrals: Physician,None [Primary Care Provider] - 1 Week Discharge Medications: New metformin 500 mg Tablet 500 mg PO BIDWM Qty: 60 0RF amlodipine 5 mg Tablet 5 mg PO DAILY Qty: 30 0RF Protocol: Hold for SBP< HOLD for SBP < : 90 (DME) FreeStyle Lite Strips Strip Qty: 100 0RF Rx Instructions: Test four times a day or as directed. (DME) blood-glucose meter [FreeStyle Lite Meter] Kit Qty: 1 0RF Rx Instructions: As Directed alcohol swabs Pads, Medicated 1 pad TOPICAL QIDACHS Qty: 100 0RF Rx Instructions: Use four times a day or as directed. insulin lispro [Humalog KwikPen Insulin] 100 unit/mL insulin pen 0 sliding scale dose SUBCUT QIDACHS Qty: 15 0RF Rx Instructions: Blood Sugar: <150 - 0 units 151-200 - 2 units 201-250 - 4 units 251-300 - 6 units 301-350 - 8 units >350 - 10 units insulin glargine [Lantus Solostar U-100 Insulin] 100 unit/mL (3 mL) insulin pen 15 unit SUBCUT DAILY Qty: 15 0RF (DME) pen needle, diabetic 32 gauge x 1/4 needle Qty: 100 0RF Rx Instructions: Use four times a day or as directed. (DME) lancets [FreeStyle Lancets] 28 gauge misc Qty: 100 0RF Rx Instructions: Test four times a day or as directed. Continued mirtazapine 15 mg Tablet 15 mg PO BEDTIME cholecalciferol (vitamin D3) [Vitamin D3] 125 mcg (5,000 unit) Tablet 125 mcg PO DAILY Discontinued insulin glargine [Lantus Solostar U-100 Insulin] 100 unit/mL (3 mL) Insulin Pen 10 unit SUBCUT QPM Discharge Orders: Discharge Order (Routine); Ordered 04/14/23 Ordered By: Jaswinder Guadalupe Diet: Diabetic diet Activity on Discharge: As tolerated Stand Alone Forms: Patient Portal Discharge page Care Plan Goals: Contrtol of diabetes Health Concerns: diabetes,non compliance with medication Plan of Treatment: take insulin as directed and follow up with your Doctor, follow diabetic diet Assessment: see above
[2023-04-14 19:12] VITALS: BP 130/74; PULSE 97; RESP 18; TEMP 36.8; O2SAT 97
[2023-04-14 20:34] LABS: Transglutaminase IgA <1.0 U/mL
== END 2023-04-14 20:23 | disposition home or self-care (01) | DRG 420 ==
LOC: HO.ED 17:25 → HO.EDOVER 18:38 → HO.S3 04-12 10:03
PROVIDERS: Internal Medicine Gastroenterology; Registered Nurse Emergency; Admitting Provider Student in an Organized Health Care Education/Training Program; Emergency Provider Emergency Medicine Emergency Medical Services; Visit Provider Internal Medicine
DX: E11.65 Type 2 diabetes mellitus with hyperglycemia (principal); N17.9 Acute kidney failure, unspecified; E44.1 Mild protein-calorie malnutrition; E87.21 Acute metabolic acidosis; K59.00 Constipation, unspecified; R62.7 Adult failure to thrive; E86.0 Dehydration; F17.210 Nicotine dependence, cigarettes, uncomplicated; I10 Essential (primary) hypertension; Z71.6 Tobacco abuse counseling; Z68.20 Body mass index [BMI] 20.0-20.9, adult; Z91.119 Patient's noncompliance with dietary regimen due to unspecified reason; Z91.148 Patient's other noncompliance with medication regimen for other reason; Z91.199 Patient's noncompliance with other medical treatment and regimen due to unspecified reason; Z79.4 Long term (current) use of insulin; Z79.899 Other long term (current) drug therapy
CPT/HCPCS: 36415; 71260; 72100; 74177; 80048; 80053; 81001; 82010; 82306; 82784; 82947; 83036; 83605; 83690; 83735; 84443; 85025; 85610; 86364; 87040; 87177; 87209; 87507; 89055; 93005; 97116; 97161; 99285; J1650; J2270; J2405; J7120; Q9967

== ENCOUNTER → 2023-04-11 12:19 | Outpatient (BNV) | payer MEDICAID, SELFPAY | PROVIDERS: Admitting Provider Student in an Organized Health Care Education/Training Program; Emergency Provider Emergency Medicine Emergency Medical Services; Visit Provider Internal Medicine | DX: R00.0 Tachycardia, unspecified (principal); R94.31 Abnormal electrocardiogram [ECG] [EKG] | CPT/HCPCS: 93010 ==

== ENCOUNTER → 2023-04-11 18:19 | Outpatient (BNV) | payer MEDICAID, SELFPAY | PROVIDERS: Admitting Provider Student in an Organized Health Care Education/Training Program; Emergency Provider Emergency Medicine Emergency Medical Services; Visit Provider Student in an Organized Health Care Education/Training Program | DX: R62.7 Adult failure to thrive (principal); R73.9 Hyperglycemia, unspecified; Z91.199 Patient's noncompliance with other medical treatment and regimen due to unspecified reason; R63.4 Abnormal weight loss; N17.9 Acute kidney failure, unspecified | CPT/HCPCS: 99223; 99232; 99233; 99239 ==

== ENCOUNTER → 2023-04-11 18:19 | Outpatient (BNV) | payer MEDICAID, SELFPAY | PROVIDERS: Admitting Provider Student in an Organized Health Care Education/Training Program; Emergency Provider Emergency Medicine Emergency Medical Services; Visit Provider Internal Medicine Gastroenterology | DX: R63.4 Abnormal weight loss (principal); K52.9 Noninfective gastroenteritis and colitis, unspecified; E11.9 Type 2 diabetes mellitus without complications | CPT/HCPCS: 99222 ==

== ENCOUNTER 2023-05-04 19:05 | Emergency (ER) | payer MEDICAID, SELFPAY ==
[2023-05-04 19:58] VITALS: BP 101/61; PULSE 110; RESP 18; TEMP 36.9; O2SAT 98; BMI 17.9
--- NOTE | 2023-05-04 19:59 | ED_ITS ---
HPI - General Adult General Chief complaint: General Medical Stated complaint: elevated blood sugars, kidney pain,? sores on legs Time Seen by Provider: 05/04/23 23:09 Source: patient, family (Patient's son), RN notes reviewed and old records reviewed Mode of arrival: ambulatory Limitations: no limitations History of Present Illness HPI narrative: 63-year-old male past medical history significant for diabetes, depression presents for evaluation of high blood sugar. Per the patient's son, the patient does not take his insulin at home ?because he does not want to. ? Patient's son states that the patient's blood sugars always over 400 Per the patient's son the patient has had nausea vomiting and diarrhea. He was seen here a few weeks ago for similar complaints The patient declined rehab at that time He is able to get around without any difficulty but occasionally falls per the patient's son The patient states that he currently has no complaints He does have 2 wounds to his right arteaga that he does not know how they got there. Per the patient's son ?they started as blisters or bubbles. ? The patient reports that he did not burn himself or have any wounds that he knows of but does admit to having diabetic neuropathy Related Data Home Medications Medication Instructions Recorded Confirmed cholecalciferol (vitamin D3) 125 125 mcg PO DAILY 04/11/23 04/11/23 mcg (5,000 unit) tablet (Vitamin D3) mirtazapine 15 mg tablet 15 mg PO BEDTIME 04/11/23 04/11/23 Previous Rx's Medication Instructions Recorded alcohol swabs 1 pad topical QIDACHS #100 ea 04/14/23 amlodipine 5 mg tablet 5 mg PO DAILY #30 tabs 04/14/23 blood sugar diagnostic (FreeStyle #100 ea 04/14/23 Lite Strips) blood-glucose meter (FreeStyle #1 ea 04/14/23 Lite Meter kit) insulin glargine 100 unit/mL (3 15 unit (0.15 mL) subcut DAILY #15 04/14/23 mL) subcutaneous pen (Lantus mL Solostar U-100 Insulin) insulin lispro 100 unit/mL 0 sliding scale dose subcut 04/14/23 subcutaneous pen (Humalog KwikPen QIDACHS #15 mL (U-100) Insulin) lancets 28 gauge (FreeStyle #100 ea 04/14/23 Lancets) metformin 500 mg tablet 500 mg PO BIDWM #60 tabs 04/14/23 pen needle, diabetic 32 gauge x #100 ea 04/14/23/ mupirocin 2 % topical ointment 1 appl topical BID 5 days #15 grams 05/05/23 Allergies Allergy/AdvReac Type Severity Reaction Status Date / Time No Known Allergies Allergy Verified 04/11/23 12:16 Review of Systems 2 Constitutional: Constitutional: Denies body ache(s), Denies chills and Denies fever(s) ENT: Denies sore throat Cardiovascular: Cardiovascular: Denies chest pain and Denies dyspnea Respiratory: Respiratory: Denies cough and Denies dyspnea Gastrointestinal: Gastrointestinal: Denies abdominal pain, Reports diarrhea, Reports nausea and Reports vomiting Musculoskeletal: Musculoskeletal: Denies back pain Integumentary/Breasts: Skin/Breast: Reports wounds PMFSH Past Medical History Medical History (Updated 05/05/23 @ 00:43 by Oziel Thapa) Hypertension Type 2 diabetes mellitus Social History Social History Household Members: Family Housing: Apartment Do you presently have visiting nurse or other home services: No Patient Tobacco Use Status: Current everyday Tobacco user Cigarettes Per Day: 15 Smoked in Last 30 Days: Yes Use of substances other than those prescribed or required for medical reasons: No Advance Directives: Yes Advance Directives on File: Yes Advance Directives Date on File: 04/17/23 service: No Physical Exam ED Vital Signs: Vital Signs - 24 hr 05/04/23 19:58 05/04/23 23:31 Temperature 98.4 F 98.5 F Pulse Rate 110 H 114 H Respiratory Rate 18 15 Blood Pressure 101/61 115/68 Pulse Oximetry 98 96 Oxygen Delivery Method Room Air Room Air BMI result Body Mass Index 17.9 Const General: healthy appearing, comfortable, no acute distress, alert and awake Nutritional Appearance: well nourished Orientation/consciousness: patient oriented x3 HENMT Head: Yes normocephalic and Yes atraumatic Eyes Eyelids: Yes eyelids normal Conjunctivae: conjunctivae normal Sclerae: sclerae normal Corneas: corneas normal Pupils: Equal, round and reactive pupils present EOM: EOMs intact bilaterally Neck Neck: Yes full ROM Resp Effort & Inspection: normal respiratory effort, able to speak in complete sentences and not labored GI Inspection: No distended Palpation (GI): Soft to palpation, not firm, nontender, no guarding and not rigid Skin Other: Patient has 2 healing wounds to the right anterior arteaga. The most superior 1 is about 2 x 3 cm in the more inferior 1 is about 3 x 4 cm. The wounds are scabbed over, there is no surrounding erythema, no edema or increased warmth, no purulent drainage. General skin exam: elasticity normal Neuro General: patient oriented x3 Cranial nerves: Yes Equal, round and reactive pupils present and Yes Bilaterally intact EOM present Cognition (Neuro): normal cognition Extrem Other: Moving all extremities well without any obvious deformities Course Course Course Narrative: RME: Concerns for hyperglycemia for the past several weeks. Last glucose > 400. Discharged from [place] on 04/14 for abdominal pain and sent home with Metformin BID, Lispro, and Lantus insulin. Pt son states father has been non-complaint with his meds and only takes them when told to. Concerns for sores on legs that 'burst' Reevaluation(s) Reevaluation #1: Patient re-evaluated, he is requested discharge this time, the patient's son is comfortable with this plan and reports he has outpatient help with case management he may call for home assistance if he needs it. The patient is stable on his feet, he will be discharged with Bactroban for the wounds to his right lower leg Time: 01:34 Medications Administered Discontinued Medications Generic Name Dose Route Start Last Admin Trade Name Freq PRN Reason Stop Dose Admin Sodium Chloride 1,000 mls @ 999 mls/hr 05/05/23 00:15 05/05/23 00:34 Ns IV 05/05/23 01:15 999 mls/hr .Q1H1M [facility] Administration Medical Decision Making Medical Decision Making MDM Narrative: 63-year-old male presents for evaluation of high blood sugar and wounds to his right leg. The wounds appear to be healing appropriately, there are no signs of acute infection. It is unclear exactly what caused the wounds, but they do not appear cellulitic. Patient's glucose is elevated to 252 and his BUN is elevated to 28, likely indicative of some degree of kidney injury. Will treat both sugar and elevated BUN with IV fluids Differential Diagnosis Differential Diagnoses: The differential diagnosis associated with the presentation includes Noncompliance Diabetes Hypomagnesemia DKA Acute wound Ulcer Lab Data MDM Lab Attestation statement: I reviewed the patient's lab results. No leukocytosis. The patient has a very mild anemia with a hemoglobin 12.9 hematocrit 38.3. No significant electrolyte abnormalities. Patient's glucose is elevated to 52 but no evidence of DKA. 05/04/23 20:26 05/04/23 20:26 Labs: Lab Results 05/04/23 05/04/23 Range/Units 20:26 20:33 WBC 8.5 (4.8-10.8) X10*3/uL RBC 4.68 (4.60-5.80) X10*6/uL Hgb 12.9 L (14.0-18.0) g/dl Hct 38.3 L (42.0-52.0) % MCV 81.8 (80.0-98.0) fL MCH 27.6 (27.0-33.0) pg MCHC 33.7 (31.0-36.0) g/dl RDW 13.0 (11.0-16.0) % Plt Count 393 D (160-400) X10*3/uL MPV 9.7 (9.4-12.4) fL Immature Gran % (Auto) 0.2 (0.0-0.4) % Neut % (Auto) 55.5 (45-73) % Lymph % (Auto) 28.0 (20-40) % Cameron % (Auto) 6.4 (2-11) % Eos % (Auto) 8.6 H (0-4) % Baso % (Auto) 1.3 (0-2) % Lymph # (Auto) 2.4 (1.2-4.9) X10*3/uL Cameron # (Auto) 0.5 (0.1-1.2) X10*3/uL Eos # (Auto) 0.7 H (0.0-0.4) X10*3/uL Baso # (Auto) 0.1 (0.0-0.2) X10*3/uL Abs Immat Gran (auto) 0.02 (0.00-0.03) X10*3/uL Absolute Neuts (auto) 4.7 (2.0-8.3) x10*3/uL Absolute Nucleated RBC 0.000 (0.0-0.012) X10*3/uL Nucleated RBC % (auto) 0.0 (0.0-0.2) /100WBC Sodium 135 (135-145) mmol/L Potassium 4.6 (3.3-5.1) mmol/L Chloride 99 (96-108) mmol/L Carbon Dioxide 25 (22-29) mmol/L Anion Gap 16 (12-20) BUN 28 H (9-16) mg/dL Creatinine 0.91 (0.5-1.4) mg/dL Estim Creat Clear Calc 57.7 Estimated GFR > 60 Random Glucose 252 H (60-115) mg/dL Calcium 10.1 D (8.4-10.2) mg/dL Total Bilirubin 0.2 (0.0-1.0) mg/dL AST 12 (5-37) U/L ALT 19 (0-40) U/L Alkaline Phosphatase 106 (39-117) U/L Total Protein 7.0 (6.5-8.0) g/dL Albumin 3.9 (3.5-5.0) g/dL Urine Color Dark Yellow Urine Appearance Clear Urine pH 5.5 (5.0-9.0) Ur Specific Kellogg 1.025 (1.005-1.025) Urine Protein Trace (Neg-Trace) mg/dL Urine Glucose (UA) 500 H (Negative) mg/dL Urine Ketones Trace (Negative) mg/dL Urine Blood Negative (Negative) Urine Nitrite Negative (Negative) Ur Leukocyte Esterase Negative (Negative) Urine RBC 0-2 (0-2) /HPF Urine WBC 0-5 (0-5) /HPF Ur Squamous Epith Cells 0-2 (0-2) /HPF Urine Bacteria None Seen (None Seen) Hyaline Casts 11-20 (0-2) /LPF Discharge Plan Discharge Clinical Impression: Acute hyperglycemia, Skin tear of lower leg without complication Patient Disposition: Home, Self-Care Instructions: Diabetic Hyperglycemia (ED) Additional Instructions: Make sure you take your medications as prescribed. Apply Bactroban ointment twice daily for 5 days to the wounds on your right leg You may call your primary doctor or case management tomorrow to request further assistance at home if you feel that you need a Return for new or worsening symptoms Prescriptions: New mupirocin 2 % ointment 1 appl topical BID 5 Days Qty: 15 0RF No Action mirtazapine 15 mg Tablet 15 mg PO BEDTIME cholecalciferol (vitamin D3) [Vitamin D3] 125 mcg (5,000 unit) Tablet 125 mcg PO DAILY metformin 500 mg Tablet 500 mg PO BIDWM Qty: 60 0RF amlodipine 5 mg Tablet 5 mg PO DAILY Qty: 30 0RF Protocol: Hold for SBP< HOLD for SBP < : 90 (DME) FreeStyle Lite Strips Strip Qty: 100 0RF Rx Instructions: Test four times a day or as directed. (DME) blood-glucose meter [FreeStyle Lite Meter] Kit Qty: 1 0RF Rx Instructions: As Directed alcohol swabs Pads, Medicated 1 pad TOPICAL QIDACHS Qty: 100 0RF Rx Instructions: Use four times a day or as directed. insulin lispro [Humalog KwikPen Insulin] 100 unit/mL insulin pen 0 sliding scale dose SUBCUT QIDACHS Qty: 15 0RF Rx Instructions: Blood Sugar: <150 - 0 units 151-200 - 2 units 201-250 - 4 units 251-300 - 6 units 301-350 - 8 units >350 - 10 units insulin glargine [Lantus Solostar U-100 Insulin] 100 unit/mL (3 mL) insulin pen 15 unit SUBCUT DAILY Qty: 15 0RF (DME) pen needle, diabetic 32 gauge x 1/4 needle Qty: 100 0RF Rx Instructions: Use four times a day or as directed. (DME) lancets [FreeStyle Lancets] 28 gauge misc Qty: 100 0RF Rx Instructions: Test four times a day or as directed.
[2023-05-04 20:30] LABS: MANUAL DIFF FLAG NO
[2023-05-04 20:31] LABS: Basophils Absolute Auto 0.1 X10*3/uL (0.0-0.2); Basophils Percent Auto 1.3 % (0-2); Eosinophils Absolute Auto 0.7 X10*3/uL (0.0-0.4); Eosinophils Percent Auto 8.6 % (0-4); Hematocrit 38.3 % (42.0-52.0); Hemoglobin 12.9 g/dl (14.0-18.0); Imm Gran Abs Auto 0.02 X10*3/uL (0.00-0.03); Imm Gran Pct Auto 0.2 % (0.0-0.4); Lymphocytes Absolute Auto 2.4 X10*3/uL (1.2-4.9); Mean Corpuscular HGB Conc 33.7 g/dl (31.0-36.0); Mean Corpuscular Hemoglobin 27.6 pg (27.0-33.0); Mean Corpuscular Volume 81.8 fL (80.0-98.0); Mean Platelet Volume 9.7 fL (9.4-12.4); Monocytes Absolute Auto 0.5 X10*3/uL (0.1-1.2); Monocytes Percent Auto 6.4 % (2-11); Neutrophils Absolute Auto 4.7 x10*3/uL (2.0-8.3); Neutrophils Percent Auto 55.5 % (45-73); Platelet Count 393 X10*3/uL (160-400); Red Blood Count 4.68 X10*6/uL (4.60-5.80); White Blood Count 8.5 X10*3/uL (4.8-10.8)
[2023-05-04 20:47] LABS: Alanine Aminotransferase 19 U/L (0-40); Albumin Level 3.9 g/dL (3.5-5.0); Alkaline Phosphatase 106 U/L (39-117); Anion Gap 16 (12-20); Aspartate Amino Transferase 12 U/L (5-37); Bilirubin Total 0.2 mg/dL (0.0-1.0); Blood Urea Nitrogen 28 mg/dL (9-16); Calcium 10.1 mg/dL (8.4-10.2); Carbon Dioxide 25 mmol/L (22-29); Chloride 99 mmol/L (96-108); Creatinine Clr Calc Pharmacy 57.7; Estimated Glomerular Filt Rate > 60; Glucose Random 252 mg/dL (60-115); Potassium 4.6 mmol/L (3.3-5.1); Sodium 135 mmol/L (135-145)
[2023-05-04 20:58] LABS: Appearance Urine Clear; Color Urine Dark Yellow; Glucose Urine UA 500 mg/dL (Negative); Leukocyte Esterase Urine Negative (Negative); Nitrite Urine Negative (Negative); PH 5.5 (5.0-9.0); Specific Gravity - Urine 1.025 (1.005-1.025); Urine Blood Negative (Negative); Urine Ketones Trace mg/dL (Negative); Urine Protein Trace mg/dL (Neg-Trace)
[2023-05-04 21:06] LABS: Bacteria Urine None Seen (None Seen); RBC Urine 0-2 /HPF (0-2); Squamous Epithelial Cell Urine 0-2 /HPF (0-2); WBC Urine 0-5 /HPF (0-5)
[2023-05-04 23:31] VITALS: BP 115/68; PULSE 114; RESP 15; TEMP 36.9; O2SAT 96
--- NOTE | 2023-05-04 23:38 | MHC.EDTECH ---
THIS PCT ASSUMED CARE OF PT AT 2300 ,VITALS TAKEN ,PT WAS HOOKED UP TO [facility] [place] AWARE OF PT HIGH HEART RATE .
[2023-05-05] MEDS: 0.9 % Sodium Chloride 1,000 ML 999 ML IV (00:34)
[2023-05-05 01:36] VITALS: BP 112/69; PULSE 107; RESP 16; TEMP 36.9; O2SAT 96
[2023-05-05 01:42] LABS: Glucose, Whole Blood 296 mg/dL (60-115)
== END 2023-05-05 01:47 | disposition home or self-care (01) ==
PROVIDERS: Nurse Practitioner Family; Emergency Provider Internal Medicine
DX: E11.65 Type 2 diabetes mellitus with hyperglycemia (principal); R11.2 Nausea with vomiting, unspecified; F33.1 Major depressive disorder, recurrent, moderate; F17.210 Nicotine dependence, cigarettes, uncomplicated; Z79.4 Long term (current) use of insulin; Z79.899 Other long term (current) drug therapy
CPT/HCPCS: 36415; 80053; 81001; 82947; 85025; 96365; 99284

== ENCOUNTER 2023-06-01 15:19 | Emergency (ER) | payer MEDICARE, MEDICAID, SELFPAY ==
[2023-06-01 15:41] VITALS: BP 144/82; PULSE 112; O2SAT 98
[2023-06-01 15:42] VITALS: BP 165/85; PULSE 115; RESP 20; TEMP 36.4; O2SAT 99; BMI 19.9
[2023-06-01 15:52] LABS: Glucose, Whole Blood 561 mg/dL (60-115)
[2023-06-01 16:06] LABS: MANUAL DIFF FLAG NO
[2023-06-01 16:07] LABS: Basophils Absolute Auto 0.1 X10*3/uL (0.0-0.2); Basophils Percent Auto 1.1 % (0-2); Eosinophils Absolute Auto 0.3 X10*3/uL (0.0-0.4); Eosinophils Percent Auto 3.8 % (0-4); Hematocrit 33.4 % (42.0-52.0); Hemoglobin 11.5 g/dl (14.0-18.0); Imm Gran Abs Auto 0.02 X10*3/uL (0.00-0.03); Imm Gran Pct Auto 0.3 % (0.0-0.4); Lymphocytes Absolute Auto 1.4 X10*3/uL (1.2-4.9); Lymphocytes Percent Auto 19.1 % (20-40); Mean Corpuscular HGB Conc 34.4 g/dl (31.0-36.0); Mean Corpuscular Hemoglobin 27.8 pg (27.0-33.0); Mean Corpuscular Volume 80.7 fL (80.0-98.0); Monocytes Absolute Auto 0.5 X10*3/uL (0.1-1.2); Monocytes Percent Auto 6.6 % (2-11); Neutrophils Absolute Auto 5.1 x10*3/uL (2.0-8.3); Neutrophils Percent Auto 69.1 % (45-73); Platelet Count 276 X10*3/uL (160-400); Red Blood Count 4.14 X10*6/uL (4.60-5.80); Red Cell Distribution Width 12.9 % (11.0-16.0); White Blood Count 7.3 X10*3/uL (4.8-10.8)
[2023-06-01 16:21] LABS: Beta-Hydroxybutyrate 0.11 mmol/L (0.02-0.27); Lactic Acid 2.8 mmol/L (0.5-2.0)
[2023-06-01 16:30] LABS: Appearance Urine Clear; Color Urine Yellow; Glucose Urine UA >=1000 mg/dL (Negative); Leukocyte Esterase Urine Negative (Negative); Nitrite Urine Negative (Negative); Specific Gravity - Urine 1.025 (1.005-1.025); UMIC TRIGGER UACC YES; Urine Blood Negative (Negative); Urine Ketones Negative (Negative); Urine Protein Negative (Neg-Trace)
[2023-06-01 16:30] LABS: Alanine Aminotransferase 40 U/L (0-40); Albumin Level 3.9 g/dL (3.5-5.0); Alkaline Phosphatase 163 U/L (39-117); Anion Gap 12 (12-20); Aspartate Amino Transferase 19 U/L (5-37); Bilirubin Total 0.2 mg/dL (0.0-1.0); Blood Urea Nitrogen 33 mg/dL (9-16); Calcium 9.7 mg/dL (8.4-10.2); Carbon Dioxide 27 mmol/L (22-29); Chloride 91 mmol/L (96-108); Creatinine Clr Calc Pharmacy 53.2; Estimated Glomerular Filt Rate > 60; Glucose Random 621 mg/dL (60-115); Potassium 5.3 mmol/L (3.3-5.1); Sodium 125 mmol/L (135-145); Total Protein 6.9 g/dL (6.5-8.0)
[2023-06-01 16:33] LABS: Bacteria Urine None Seen (None Seen); Hyaline Casts Urine 0-2 /LPF (0-2); RBC Urine 0-2 /HPF (0-2); Squamous Epithelial Cell Urine 0-2 /HPF (0-2); WBC Urine 0-5 /HPF (0-5)
[2023-06-01] MEDS: Morphine Sulfate 4 MG/ML CARTRIDGE IVPUSH (16:47)
[2023-06-01] MEDS: Insulin Regular, Human 100 UNIT/ML 3 ML VIAL 10 UNIT IVPUSH (16:47)
[2023-06-01] MEDS: ondansetron HCL 4 MG/2 ML VIAL IVPUSH (16:47)
[2023-06-01] MEDS: 0.9 % Sodium Chloride 1,000 ML 999 ML IV ×2 (16:47→18:44)
--- NOTE | 2023-06-01 16:51 | MHC.CM.ED ---
ED charge nurse received a call from Aranza [phone]) at [facility]. Pt has an open case. Lives with son. ? of both patient and son's ability to care for this patient. Work up pending.
--- NOTE | 2023-06-01 16:53 | ED.GENADULT ---
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 (Auto) (20-40) % [place] % (Auto) (2-11) % Eos % (Auto) (0-4) % Baso % (Auto) (0-2) % Lymph # (Auto) (1.2-4.9) X10*3/uL [place] # (Auto) (0.1-1.2) X10*3/uL Eos # (Auto) (0.0-0.4) X10*3/uL Baso # (Auto) (0.0-0.2) X10*3/uL Abs Immat Gran (auto) (0.00-0.03) X10*3/uL Absolute Neuts (auto) (2.0-8.3) x10*3/uL Absolute Nucleated RBC (0.0-0.012) X10*3/uL Nucleated RBC % (auto) (0.0-0.2) /100WBC ESR (0-15) MM/HR Sodium (135-145) mmol/L Potassium (3.3-5.1) mmol/L Chloride (96-108) mmol/L Carbon Dioxide (22-29) mmol/L Anion Gap (12-20) BUN (9-16) mg/dL Creatinine (0.5-1.4) mg/dL Estim Creat Clear Calc Estimated GFR POC Glucose 297 H (60-115) mg/dL Random Glucose (60-115) mg/dL Lactic Acid (0.5-2.0) mmol/L Lactic Acid F/U @ 2Hr (0.5-2.0) mmol/L Lactic Acid F/U @ 4Hr (0.5-2.0) mmol/L Calcium (8.4-10.2) mg/dL Total Bilirubin (0.0-1.0) mg/dL AST (5-37) U/L ALT (0-40) U/L Alkaline Phosphatase (39-117) U/L C-Reactive Protein (< or = 0.50) mg/dL Total Protein (6.5-8.0) g/dL Albumin (3.5-5.0) g/dL Beta-Hydroxybutyrate (0.02-0.27) mmol/L Hold Green Top Urine Color Urine Appearance Urine pH (5.0-9.0) Ur Specific [place] (1.005-1.025) Urine Protein (Neg-Trace) mg/dL Urine Glucose (UA) (Negative) mg/dL Urine Ketones (Negative) mg/dL Urine Blood (Negative) Urine Nitrite (Negative) Ur Leukocyte Esterase (Negative) Urine RBC (0-2) /HPF Urine WBC (0-5) /HPF Ur Squamous Epith Cells (0-2) /HPF Urine Bacteria (None Seen) Hyaline Casts (0-2) /LPF Influenza Type A (PCR) (Negative) Influenza Type B (PCR) (Negative) RSV RNA Qual (PCR) (Negative) SARS-CoV-2 RNA (RT-PCR) (Negative) Discharge Plan Discharge Clinical Impression: Hyperglycemia, Leg wound, right Patient Disposition: Still a Patient Additional Instructions: Please continue taking all your medications as directed. Follow-up with your primary care physician. If any new or worsening symptoms occur including but not limited to chest pain, shortness of breath, dizziness, blurred vision, headache, abdominal pain, nausea, vomiting or diarrhea, please return for re-evaluation. Prescriptions: No Action metformin 500 mg Tablet 500 mg PO BIDWM Qty: 60 0RF (DME) FreeStyle Lite Strips Strip Qty: 100 0RF Rx Instructions: Test four times a day or as directed. (DME) blood-glucose meter [FreeStyle Lite Meter] Kit Qty: 1 0RF Rx Instructions: As Directed (DME) pen needle, diabetic 32 gauge x 1/4 needle Qty: 100 0RF Rx Instructions: Use four times a day or as directed. (DME) lancets [FreeStyle Lancets] 28 gauge misc Qty: 100 0RF Rx Instructions: Test four times a day or as directed. insulin lispro [Humalog KwikPen Insulin] 100 unit/mL insulin pen 0 sliding scale dose SUBCUT QIDACHS Protocol: Insulin Correction Scale Less than or equal to 110 ---- Give (units): 0 111 to 150 Give (units): 0 151 to 200 Give (units): 2 201 to 250 Give (units): 4 251 to 300 Give (units): 6 301 to 350 Give (units): 8 Greater than 350 Give (units): 10 Call MD if Blood Glucose > : 350 Rx Instructions: Blood Sugar: <150 - 0 units 151-200 - 2 units 201-250 - 4 units 251-300 - 6 units 301-350 - 8 units >350 - 10 units insulin glargine [Lantus Solostar U-100 Insulin] 100 unit/mL (3 mL) insulin pen 10 unit SUBCUT DAILY Referrals: [facility] [Outside]
--- NOTE | 2023-06-01 16:56 | PC.NURSE ---
PT HAS OPEN CASE WITH [facility], LIVES WITH SON. UNABLE TO CARE FOR SELF, POOR HOUSE CONDITIONS. [phone], [employer]NER [employer] SHRADDHA. CASE MGMT AND PA AWARE
[2023-06-01 17:04] LABS: C Reactive Protein 1.49 mg/dL (< or = 0.50)
[2023-06-01 18:05] LABS: Reflex Lactate? Lactic Acid Added
[2023-06-01 18:25] LABS: Influenza A PCR NEGATIVE (Negative); Influenza B PCR NEGATIVE (Negative); Resp Syncy Virus RNA Qual PCR NEGATIVE (Negative); SARS COV2 PCR INHOUSE NEGATIVE (Negative)
[2023-06-01 19:31] LABS: ~Lactic Acid-LAB USE ONLY 2.1 mmol/L (0.5-2.0)
[2023-06-01 19:36] VITALS: BP 145/85; PULSE 106
[2023-06-01 19:51] LABS: Erythrocyte Sedimentation Rate 28 MM/HR (0-15)
[2023-06-01 19:54] VITALS: BP 148/78; PULSE 107; RESP 16; TEMP 36.7; O2SAT 97
[2023-06-01 20:53] VITALS: BP 134/85; PULSE 108; RESP 14; O2SAT 96
[2023-06-01 20:56] LABS: Glucose, Whole Blood 207 mg/dL (60-115)
[2023-06-01 21:10] LABS: Reflex Lactate? 2 Y
[2023-06-01 21:40] LABS: ~Lactic Acid-LAB USE ONLY 0.6 mmol/L (0.5-2.0)
--- NOTE | 2023-06-01 21:50 | PHA.MEDREC ---
Pharmacy Consult ? Medication Reconciliation Pharmacy has completed the medication reconciliation. Patient reports only taking the pill for sugar and insulin. Reports he takes lantus 10 units and sometimes 15 units in addition to a sliding scale prior to meals. Colleen Patel, PharmD
--- NOTE | 2023-06-01 21:57 | PC.NURSE ---
Patient resting comfortably on stretcher at this time, states pain is decreased, wants to eat. Lactic trending down, fluids running.
--- NOTE | 2023-06-01 22:11 | MHC.CM.ED ---
Received consult from Ramo ROMAN. Pt is A&Ox3, but is a bit vague with CM about medication compliance. States he takes his medications and insulin, but sometimes might not take enough. Is also unclear if there is any help in the home. Pt lives with his son. Has been living with him since March, having moved from [place]. It appears that patient cannot stay with son due to ?Landlord. States it is not section 8 housing, but it is a studio apartment. Pt states he needs an apartment. Has SSDI. [place] medicare/medicaid. Pt does not have a PCP. Was [place] [facility] [place] and was referred to [facility] for PCP and [facility]. At that time, patient was given scripts for Metformin, Lispro and Lantus insulin. Pt was also seen in April for hyperglycemia and son stated patient does not take his medications. Call to son/HCP Dawood Randall Jr. ([phone]). Phone number was verified on patient's cell phone. Pt has a walker. Unsure of services. States has had many falls. PT consult pending. CM called son and left message to return call. Pt will remain overnight. May need STR. Referrals placed locally. CM will call [facility] in the morning regarding patient's assessment and plan of care. CM following for safe discharge plan.
[2023-06-01 23:51] VITALS: BP 116/67; PULSE 108; RESP 16; TEMP 37.1; O2SAT 96
[2023-06-02] VITALS (7 sets, daily range): BP systolic 112–144; BP diastolic 60–78; PULSE 100–114; RESP 15–19; TEMP 36.6–37.1; O2SAT 96–98
--- NOTE | 2023-06-02 00:23 | PC.NURSE ---
Took over care at 23:00, pt sleeping no sign of distress at this time.
--- NOTE | 2023-06-02 04:31 | PC.NURSE ---
Pt assisted with urinal, pt repositioned for comfort. no sign of distress.
--- NOTE | 2023-06-02 06:11 | PC.NURSE ---
pt repositioned for comfort, warm blanket and pillows given, urinal emptied, call duran at the bedside.
--- NOTE | 2023-06-02 06:20 | PC.NURSE ---
wounds in lower extremities have no drainage, red fall socks applied
[2023-06-02] MEDS: Acetaminophen 325 MG TABLET 650 MG PO (06:46)
--- NOTE | 2023-06-02 06:48 | PC.NURSE ---
pt medicated per may. Legs elevated for comfort.
[2023-06-02 07:23] LABS: Glucose, Whole Blood 391 mg/dL (60-115)
--- NOTE | 2023-06-02 07:50 | PC.NURSE ---
PT IS A/O X 4 NO SOB/CHRISSIE NOTED SPEAKS IN FULL SENTENCES. POC AT 0730 - (391) GIVEN 10UNITS OF INSULIN, MLP (KLAUDIA) AWARE. PT HAS A SCABBED WOUND GREATER THAN DOLLAR SIZE TO R LOWER LEG/ANKLE ARE AD A BUBBLE FILLED ARE TO R LAT LOWER LEG. NO EDEMA NOTED TO EXT. PT AWARE OF PLAN OF CARE. WILL CONTINUE TO MONITOR.
[2023-06-02] MEDS: metFORMIN HCl 500 MG TABLET PO ×2 (08:07→16:54)
[2023-06-02] MEDS: Insulin Lispro 100 UNIT/ML 3 ML VIAL SUBCUT ×2 (08:09→21:27)
[2023-06-02] MEDS: Insulin Glargine,Hum.rec.anlog 100 UNIT/ML 10 ML VIAL 10 UNIT SUBCUT (08:09)
[2023-06-02 08:33] LABS: Glucose, Whole Blood 460 mg/dL (60-115)
[2023-06-02 09:11] LABS: Glucose, Whole Blood 443 mg/dL (60-115)
[2023-06-02] MEDS: 0.9 % Sodium Chloride 500 ML IV (10:05)
[2023-06-02] MEDS: Insulin Regular, Human 100 UNIT/ML 3 ML VIAL 8 UNIT IVPUSH (10:05)
--- NOTE | 2023-06-02 11:00 | PC.NURSE ---
RN TO RN REPORT GIVEN TO RITCHIE. PT AWARE OF PLAN OF CARE FOR TRANSFER TO OVERFLOW UNIT.
[2023-06-02 12:01] LABS: Glucose, Whole Blood 99 mg/dL (60-115)
--- NOTE | 2023-06-02 12:07 | MHC.CM.ED ---
Patient remains in ER overflow. Physical therapy eval will be held until finger stick is under 300. Naomi ROMAN made aware. Continue to monitor for d/c needs.
--- NOTE | 2023-06-02 14:30 | MHC.CM.ED ---
Patient remains in ER overflow. Physical therapy eval completed. Short term rehab is recommended. [facility], [facility] and [facility] are able to offer a bed. Met with pateint in regards to discharge planning. Bed offers discussed with patient. Patient accepts bed at [facility]. MDS completed. Faxed to [facility] and [facility]. Level 1 completed as well. Aranza from [facility] made aware via telephone at [phone], ext [phone]. Continue to monitor for d/c needs.
[2023-06-02 16:22] LABS: Glucose, Whole Blood 305 mg/dL (60-115)
--- NOTE | 2023-06-02 18:32 | PC.NURSE ---
Patient transferred to [facility] from Main ED. Patient had a blood sugar of 443 reported by ED nurse. Rechecked blood sugar and it had decreased to 99 before lunch. Tolerating diabetic diet. No nausea vomiting or diarrhea. PT eval done. Ambulatory with steady gait. Bed alarm on. Patient noted to get up impulsively but easily redirected. Using urinal at bedside. Wound care consulted for RLE open scabbed wound. Case management and social work consulted. Protective services seen patient. Denies any pain at this time.
[2023-06-02 20:10] LABS: Glucose, Whole Blood 454 mg/dL (60-115)
[2023-06-02] MEDS: hydrOXYzine HCL 25 MG TABLET PO (21:27)
[2023-06-03 06:00] VITALS: BP 117/62; PULSE 108; RESP 18; TEMP 36.6; O2SAT 98
[2023-06-03 06:31] LABS: Glucose, Whole Blood 268 mg/dL (60-115)
[2023-06-03] MEDS: Insulin Lispro 100 UNIT/ML 3 ML VIAL SUBCUT ×3 (06:47→18:12)
[2023-06-03] MEDS: metFORMIN HCl 500 MG TABLET PO ×2 (07:10→18:13)
[2023-06-03] MEDS: Insulin Glargine,Hum.rec.anlog 100 UNIT/ML 10 ML VIAL 10 UNIT SUBCUT (08:34)
[2023-06-03 11:36] LABS: Glucose, Whole Blood 278 mg/dL (60-115)
--- NOTE | 2023-06-03 11:52 | PC.NURSE ---
pt brought back to ED from overflow, pt currently sleeping, wakes to verbal stimulus, vitals have been stable- respirations equal and non labored, pt uses urinal at bedside, fall precautions in place, bed alarm on, call duran within reach, will continue to monitor
--- NOTE | 2023-06-03 13:23 | PC.NURSE ---
pt a&o, sitting up eating lunch, pt medicated with insulin per order, denies pain/discomfort at this time, fall precautions intact, will continue to monitor
[2023-06-03 17:19] LABS: Glucose, Whole Blood 171 mg/dL (60-115)
[2023-06-03 17:28] VITALS: BP 141/74; PULSE 108; RESP 18; TEMP 36.7; O2SAT 98
--- NOTE | 2023-06-03 19:30 | PC.NURSE ---
Assumed care of pt. Pt lying on stretcher, no acute complaints. Pt ate all of dinner provided. Plan to evaluate POC for possible insulin administration, otherwise continuing to monitor.
[2023-06-03 19:45] VITALS: BP 95/54; PULSE 108; RESP 16; TEMP 36.9; O2SAT 97
[2023-06-03 20:44] LABS: Glucose, Whole Blood 125 mg/dL (60-115)
[2023-06-03 22:23] VITALS: BP 122/64; PULSE 100; RESP 16; TEMP 36.7; O2SAT 97
[2023-06-04 06:19] VITALS: BP 107/62; PULSE 108; RESP 18; TEMP 36.7; O2SAT 99
[2023-06-04 06:28] LABS: Glucose, Whole Blood 223 mg/dL (60-115)
[2023-06-04] MEDS: metFORMIN HCl 500 MG TABLET PO ×2 (08:01→18:42)
[2023-06-04] MEDS: Insulin Lispro 100 UNIT/ML 3 ML VIAL SUBCUT ×4 (08:01→21:33)
[2023-06-04] MEDS: Insulin Glargine,Hum.rec.anlog 100 UNIT/ML 10 ML VIAL 10 UNIT SUBCUT (08:02)
[2023-06-04 12:53] LABS: Glucose, Whole Blood 262 mg/dL (60-115)
[2023-06-04 13:31] VITALS: BP 113/67; PULSE 108; RESP 16; TEMP 36.6; O2SAT 97
--- NOTE | 2023-06-04 13:31 | PC.NURSE ---
Insulin coverage given per protocol. Pt eating lunch at this time. No complaints.
[2023-06-04 18:30] LABS: Glucose, Whole Blood 266 mg/dL (60-115)
[2023-06-04 21:16] LABS: Glucose, Whole Blood 221 mg/dL (60-115)
[2023-06-04 23:51] VITALS: BP 86/50; PULSE 105; RESP 16; O2SAT 97
[2023-06-05 00:38] VITALS: BP 101/59; PULSE 70; RESP 16; O2SAT 97
[2023-06-05 05:52] VITALS: BP 102/62; PULSE 101; TEMP 36.6; O2SAT 97
[2023-06-05 06:52] LABS: Glucose, Whole Blood 297 mg/dL (60-115)
[2023-06-05] MEDS: metFORMIN HCl 500 MG TABLET PO (07:28)
[2023-06-05] MEDS: Insulin Lispro 100 UNIT/ML 3 ML VIAL SUBCUT ×2 (07:28→12:01)
[2023-06-05 07:59] VITALS: BP 122/60; PULSE 102; RESP 17; TEMP 36.6; O2SAT 95
[2023-06-05] MEDS: Insulin Glargine,Hum.rec.anlog 100 UNIT/ML 10 ML VIAL 10 UNIT SUBCUT (09:48)
--- NOTE | 2023-06-05 11:03 | HO.WOUND ---
Wound Consult: Initial 63yr old Male admitted to [facility] for Case Mgt on 06/01/23 - See progress notes and H&P for detailed history.? Wound consult placed for Right Leg wound Present on Admission.? Patient agreeable to assessment and photo documentation.? Pt reports he has had the wounds for approximately one month he reports they all started as blisters and evolved to current state. He denies this happening prior. He reports he has had leg swelling in the past but currently there is no evidence of swelling noted to either lower extremity. The left leg was assessed and no injury noted - the foot was noted for scabbed dried blisters - see photo. Etiology is unclear would recommend follow up with outpatient dermatology for etiology and if needed systemic treatment however the wound beds are desicated and will benefit from moist wound healing. Left Foot / toes Right Lower Lateral Foot and Leg - The right Foot is the most concerning of the ulcerations and will benefit from close monitoring from direct care team. There is blanchable redness around the wound - no warmth noted - no purulent drainage noted. Right Anterior Leg Etiology: ?Unknown Etiology - not consistent with pressure and or moisture Measurements: Various sizes larges ulceration measuring 6.5cm x 2cm x 0.2cm Wound Bed: All wound beds remain dry - difficult to assess wound bed will soften wound bed for better assessment Drainage / Odor: Dried non noted on bed linen Edges: ? Irregular Haylie wound: Dry intact - No Induration, Fluctuance or Warmth noted Pain: Denies Goals of Treatment: ? Moist wound healing and xeroform and gauze wrap change daily. Recommendations: 1. Right Lower Leg and Foot - Cleanse with NS, pat dry. Apply double layer xeroform for moist wound healing. Cover with ABD pads, gauze wrap. Change Daily. Re-consult wound care Nurse for wound deterioration or wound changes.
[2023-06-05 11:15] LABS: Glucose, Whole Blood 288 mg/dL (60-115)
--- NOTE | 2023-06-05 11:20 | MHC.CM.ED ---
Patient remains in ER. Will transfer to [facility] via BLS at 1pm. Patient, Vijay AMBRIZ and Wendy ROMAN aware. Aranza from [facility] made aware via telephone at [phone] ext [phone]. Continue to monitor for d/c needs.
--- NOTE | 2023-06-05 12:27 | PC.NURSE ---
This RN called provided [facility] nurse with phone report. Pt is comfortable and agreeable to transfer to facility
== END 2023-06-05 13:47 ==
PROVIDERS: Physician Assistant; Emergency Provider Emergency Medicine
DX: E11.52 Type 2 diabetes mellitus with diabetic peripheral angiopathy with gangrene (principal); M79.604 Pain in right leg; R79.89 Other specified abnormal findings of blood chemistry; R26.2 Difficulty in walking, not elsewhere classified; F17.200 Nicotine dependence, unspecified, uncomplicated; Z11.52 Encounter for screening for COVID-19; Z20.822 Contact with and (suspected) exposure to COVID-19; Z79.4 Long term (current) use of insulin; Z91.148 Patient's other noncompliance with medication regimen for other reason; Z79.899 Other long term (current) drug therapy
CPT/HCPCS: 0241U; 36415; 80053; 81001; 82010; 82947; 83605; 85025; 85652; 86140; 87040; 96361; 96374; 96375; 96376; 97162; 99285; J2270; J2405